=== PATIENT | female | born 1935 | race Caucasian/White ===

== ENCOUNTER 2017-07-17 15:01 | Emergency (ER) | payer MEDICARE, MEDICAID ==
--- NOTE | 2017-07-17 15:35 | RAD ---
Indication: Shortness of breath. 2 views the chest are reviewed. Cardiomegaly with tortuous descending aorta is noted. Lung pires are clear. Ribs are intact. IMPRESSION: No active cardiopulmonary disease is noted. Hyperinflated lung pires are noted.
[2017-07-17 16:13] LABS: ABS Basophils 0 10^3/ul (0-0.2); ABS Eosinophils 0.1 10^3/ul (0-0.6); ABS Lymphocytes 1.2 10^3/ul (1.0-4.8); ABS Monocytes 0.4 10^3/ul (0-0.8); ABS Neutrophils 5.8 10^3/ul (1.5-7.7); ABS Nucleated RBC 0 10^3/ul; Eosinophil % 0.9 % (0-6); Hematocrit 35 % (35-47); Hemoglobin 11.8 g/dl (12.0-16.0); Lymphocyte % 16.1 % (25-47); Mean Corpuscular HGB Conc 34 g/dl (31-36); Mean Corpuscular Hemoglobin 30 pg (27-31); Mean Corpuscular Volume 89 fL (80-97); Mean Platelet Volume 8.5 um3 (7.4-10.4); Nucleated Red Blood Cells % 0; Platelet Count 220 10^3/ul (150-450); Red Blood Count 3.96 10^6/ul (4.0-5.4); Red Cell Distribution Width 14 % (10.5-15); White Blood Count 7.6 10^3/ul (3.5-10.8)
[2017-07-17 16:36] LABS: EGFR Non-African American 52.5 (>60)
[2017-07-17 16:53] LABS: Urine Appearance Turbid; Urine Blood 1+ (Negative); Urine Color Yellow; Urine Ketones Negative (Negative); Urine Protein 2+(100 mg/dL) (Negative); Urine Specific Gravity 1.013 (1.010-1.030); Urine Urobilinogen Negative (Negative)
[2017-07-17] MEDS ORDERED: Ciprofloxacin 400MG IVPREMIX(* 400 MG/200 ML BAG IVPB ONE (16:58)
[2017-07-17 17:47] VITALS: BP 151/38
--- NOTE | 2017-07-20 07:48 | ED ---
Pedro Cohen Angela, scribed for Vikas Love MD on 07/17/17 at 1531 . Respiratory - HPI Summary HPI Summary: This pt is a 82 y/o female presenting to [facility] via EMS from [facility] for possible aspiration during lunch today. Per EMS, pt was feeding herself pudding thick consistency food today at lunch. Staff at [facility] believe pt may have aspirated while eating today. RN at [facility] reports expiratory wheezes and crackles in the lungs. Her O2 saturation is 86-89% on room air, per EMS. Pt is on a puree diet. Pt is nonverbal and confused at baseline. PMHx includes CAD, COPD, schizophrenia. HPI is limited due to level 5 caveat pt is nonverbal - History of Current Complaint Chief Complaint: EDUpperRespComplaint Stated Complaint: POSS. ASPIRATION Hx Obtained From: EMS Hx From Patient Unobtainable Due To: Other - Level 5 caveat - pt is nonverbal Onset/Duration: Sudden Onset Current Severity: None Pain Intensity: 0 Aggravating Factor(s): Other - unknown Alleviating Factor(s): Other - unknown - Allergy/Home Medications Allergies/Adverse Reactions: Allergies Allergy/AdvReac Type Severity Reaction Status Date / Time No Known Allergies Allergy Verified 02/23/16 14:29 Home Medications: Home Medications Atorvastatin* [Lipitor*] 20 mg PO BEDTIME 07/17/17 [History Confirmed 07/17/17] Bisacodyl SUPP* [Dulcolax Supp*] 10 mg CA DAILY PRN 07/17/17 [History Confirmed 07/17/17] Cholecalciferol (Vitamin D3) [Vitamin D3] 1,000 unit PO DAILY 07/17/17 [History Confirmed 07/17/17] Ranitidine TAB (NF) [Zantac TAB (NF)] 300 mg PO QPM 07/17/17 [History Confirmed 07/17/17] Sodium Phosphate ADULT ENEMA* [Fleet Enema*] 1 enema CA DAILY PRN 07/17/17 [ History Confirmed 07/17/17] guaiFENesin LIQ* [Robitussin*] 10 ml PO Q4H PRN 07/17/17 [History Confirmed 07/01] PMH/Surg Hx/FS Hx/Imm Hx Endocrine/Hematology History: Reports: Hx Anemia Cardiovascular History: Reports: Hx Coronary Artery Disease, Other Cardiovascular Problems/Disorders - Cariomyopathy Respiratory History: Reports: Hx Chronic Obstructive Pulmonary Disease (COPD) History: Reports: Hx Chronic Renal Failure Psychiatric History: Reports: Hx Schizophrenia Infectious Disease History: No Infectious Disease History: Denies: Traveled Outside the [place] in Last 30 Days - Family History Known Family History: Positive: Unknown - Unable to obtain due to AMS - Social History Alcohol Use: None Substance Use Type: Reports: None Smoking Status (MU): Unknown if Ever Smoked Review of Systems - ROS Summary Review of Systems Summary: ROS IS LIMITED DUE TO LEVEL 5 CAVEAT - Pt is nonverbal. Positive: Fever Respiratory: Other - crackles heard in lungs, per EMS Positive: Cough All Other Systems Reviewed And Are Negative: No Physical Exam - Summary Physical Exam Summary: VITAL SIGNS: Reviewed. GENERAL: Patient is a well-developed and nourished female who is lying comfortable in the stretcher. Patient is not in any acute respiratory distress. HEAD AND FACE: No signs of trauma. No ecchymosis, hematomas or skull depressions. No sinus tenderness. EYES: PERRLA, EOMI x 2, No injected conjunctiva, no nystagmus. EARS: Hearing grossly intact. Ear canals and tympanic membranes are within normal limits. MOUTH: Oropharynx within normal limits. NECK: Supple, trachea is midline, no adenopathy, no JVD, no carotid bruit, no c- spine tenderness, neck with full ROM. CHEST: Symmetric, no tenderness at palpation LUNGS: Crackles in both bases of the lungs. CVS: Regular rate and rhythm, S1 and S2 present, no murmurs or gallops appreciated. ABDOMEN: Soft, non-tender. No signs of distention. No rebound no guarding, and no masses palpated. Bowel sounds are normal. EXTREMITIES: FROM in all major joints, no edema, no cyanosis or clubbing. NEURO: Alert but not oriented. No acute neurological deficits. Speech is normal and follows commands. SKIN: Dry and warm Triage Information Reviewed: Yes Vital Signs On Initial Exam: Initial Vitals Temp Pulse Resp BP Pulse Ox 97.8 F 92 14 164/48 97 07/17/17 15:03 07/17/17 15:03 07/17/17 15:03 07/17/17 15:03 07/17/17 15:03 Vital Signs Reviewed: Yes Completion Of Physical Exam Limited Due To: Level 5 - pt is nonverbal Diagnostics - Vital Signs Vital Signs Temp Pulse Resp BP Pulse Ox 07/17/17 15:03 97.8 F 92 14 164/48 97 - Laboratory Result Diagrams: 07/17/17 16:00 07/17/17 16:00 Lab Statement: Any lab studies that have been ordered have been reviewed, and results considered in the medical decision making process. - Radiology Chest XR Xray Interpretation: No Acute Changes - IMPRESSION: No active cardiopulmonary disease is noted. Hyperinflated lung pires are noted. Dr. Love has reviewed this radiology report. Radiology Interpretation Completed By: Radiologist - EKG 15:32 Cardiac Rate: NL EKG Rhythm: Sinus Rhythm - at 86 bpm EKG Interpretation: No ST elevations. ST depression in I, II, III, V4, V5, and V6. Disposition - Course Assessment/Plan: This pt is a 82 y/o female presenting to [facility] via EMS from [facility] for possible aspiration during lunch today. Per EMS, pt was feeding herself pudding thick consistency food today at lunch. Staff at [facility] believe pt may have aspirated while eating today. Pt is on a puree diet. Pt is nonverbal and confused at baseline. PMHx includes CAD, COPD, schizophrenia. HPI is limited due to level 5 caveat pt is nonverbal. Test results without any significant abnormalities except for ABG pH of 7.47, pO2 of 60, CRP of 14.46, BNP of 185. Urinalysis is positive for UTI. Chest XR: No active cardiopulmonary disease is noted. Hyperinflated lung pires are noted. Therefore she will be discharged to home with follow up from her PCP. I discussed all the findings and test results with the patient. There were no further complaints or concerns. Pt was given a prescription for Ciprofloxacin for the UTI. She is instructed to return to the ED for any worsening or new symptoms. Pt is hemodynamically stable, alert but not oriented. - Diagnoses Provider Diagnoses: Urinary tract infection Discharge - Sign-Out/Discharge Documenting (check all that apply): Discharge - discharge to home - Discharge Plan Condition: Stable Disposition: HOME Prescriptions: Ciprofloxacin TAB* [Cipro 500 MG TAB*] 500 mg PO BID #6 tab Patient Education Materials: Urinary Tract Infection in Women (ED) Referrals: [facility] [Outside] No Primary Care Phys,NOPCP [Primary Care Provider] - Additional Instructions: Please follow up with your primary care provider. RETURN TO THE ED FOR ANY NEW OR WORSENING SYMPTOMS. The documentation as recorded by the Pedro cortez Angela accurately reflects the service I personally performed and the decisions made by , Vikas Love MD.
--- NOTE | 2017-07-20 08:49 | PN ---
Progress Note - Progress Note Date of Service: 07/17/17 Note: Urine culture final grew Klebsiella pneumonia Patient was placed on Cipro prior to discharge Cipro is sensitive to this organism Nothing further at this time
== END 2017-07-17 19:34 | disposition home or self-care (01) ==
LOC: ED 15:01
DX: N39.0 Urinary tract infection, site not specified (principal); B96.1 Klebsiella pneumoniae [K. pneumoniae] as the cause of diseases classified elsewhere; I25.10 Atherosclerotic heart disease of native coronary artery without angina pectoris; I42.9 Cardiomyopathy, unspecified; J44.9 Chronic obstructive pulmonary disease, unspecified; N18.9 Chronic kidney disease, unspecified; F20.9 Schizophrenia, unspecified
CPT/HCPCS: 36415; 71046; 80053; 81003; 81015; 82550; 82803; 83605; 83880; 84484; 85025; 86140; 87040; 87077; 87086; 87186; 87641; 93005; 99283; J0744

== ENCOUNTER 2017-09-23 11:07 | Inpatient (IN) | payer MEDICARE, MEDICAID ==
[2017-09-23] MEDS ORDERED: Piperacillin/Tazobac ADVAN(*) 3.375 GM in NS 0.9% 100 ML* 100 ML IVPB ONE (11:10)
[2017-09-23] MEDS ORDERED: NS 0.9% 1000 ML* 1,000 ML IV ONE (11:11)
[2017-09-23 11:31] LABS: ABS Basophils 0.1 10^3/ul (0-0.2); ABS Eosinophils 0.1 10^3/ul (0-0.6); ABS Lymphocytes 4.6 10^3/ul (1.0-4.8); ABS Monocytes 0.5 10^3/ul (0-0.8); ABS Nucleated RBC 0 10^3/ul; Eosinophil % 0.9 % (0-6); Hematocrit 36 % (35-47); Hemoglobin 11.5 g/dl (12.0-16.0); Lymphocyte % 28.1 % (25-47); Mean Corpuscular HGB Conc 32 g/dl (31-36); Mean Corpuscular Hemoglobin 28 pg (27-31); Mean Corpuscular Volume 89 fL (80-97); Mean Platelet Volume 8.5 um3 (7.4-10.4); Nucleated Red Blood Cells % 0; Platelet Count 329 10^3/ul (150-450); Red Blood Count 4.05 10^6/ul (4.0-5.4); Red Cell Distribution Width 16 % (10.5-15); White Blood Count 16.2 10^3/ul (3.5-10.8)
[2017-09-23 11:42] LABS: INR 1.02 (0.77-1.02)
[2017-09-23 11:49] LABS: EGFR Non-African American 50.7 (>60)
[2017-09-23 12:09] LABS: Urine Appearance Cloudy; Urine Blood 2+ (Negative); Urine Color Yellow; Urine Ketones Negative (Negative); Urine Protein 2+(100 mg/dL) (Negative); Urine Specific Gravity 1.016 (1.010-1.030); Urine Urobilinogen Negative (Negative)
--- NOTE | 2017-09-23 12:45 | RAD ---
INDICATION: Altered mental status COMPARISON: Similar CT of the brain February 23, 2016 TECHNIQUE: Contiguous axial sections of the brain were obtained from the skull base to the vertex without contrast. FINDINGS: The ventricles, cisterns and sulci exhibit symmetrical involutional changes unchanged from the prior CT of the brain.. There is a mild amount of periventricular and subcortical white matter hypoattenuation, similar in appearance to the previous CT of the brain and most consistent with chronic microvascular disease. The martínez-white matter differentiation is adequately maintained and there is no sulcal effacement. No significant focal abnormality or mass effect is present. There is no evidence for intracranial hemorrhage. No significant focal osseous abnormality is present. There is a small amount of dependent fluid and frothy secretions in the left sphenoid sinus. This is new from the previous CT of the brain. The mastoid air cells are well aerated bilaterally. IMPRESSION: 1. Stable chronic findings as described above without noncontrast CT apparent acute intracranial abnormality. 2. Evidence of new sphenoid sinusitis.
--- NOTE | 2017-09-23 12:52 | RAD ---
INDICATION: Altered mental status COMPARISON: Chest x-ray dated July 17, 2017 TECHNIQUE: Single AP portable view of the chest was obtained. FINDINGS: Image quality is compromised due to the relative inferiority of a portable chest x-ray. The heart and mediastinum exhibit normal size and contour. There is coarse calcification overlying the arch of aorta similar in appearance to the previous chest x-ray. In the AP view the lungs appear hyperaerated. There is diffuse patchy density overlying the bilateral lungs. Visualized bones are normal for the patient's age. IMPRESSION: Increased patchy density overlying the lungs diffusely could be seen in the setting of interval development of pulmonary edema possibly on a background of obstructive pulmonary disease.
[2017-09-23] MEDS ORDERED: Magnesium Hydroxide LIQ* 30 ML UDC PO PRN (13:49)
[2017-09-23] MEDS ORDERED: Bisacodyl SUPP* 10 MG SUPP PR PRN (13:49)
[2017-09-23] MEDS ORDERED: Sodium Phosphate ADULT ENEMA* 118 ml bottle PR PRN (13:49)
[2017-09-23] MEDS ORDERED: Zosyn per Pharmacy* NOTE FOLLOW UP SCH (14:00)
[2017-09-23] MEDS ORDERED: NS 0.9% 1000 ML* 1,000 ML IV SCH (14:15)
[2017-09-23] MEDS: Heparin VIAL(*) 5000 UNITS/ML VIAL (FIVE THOUSAND) SUBCUT SCH ×2 (16:15→21:40)
--- NOTE | 2017-09-23 16:26 | ED ---
Mary Cohen Julia, scribed for Vikas Love MD on 09/23/17 at 1116 . Respiratory - HPI Summary HPI Summary: This patient is a 82 year old [facility] EMS reports the patient was receiving CPR on arrival with an AED. No shocks were delivered. EMS found radial pulse. EMS states she has been dealing with a flare up of COPD this morning. Right lower lobe crackles per EMS. HPI IS LIMITED. PATIENT IS LEVEL 5 CAVEAT. - History of Current Complaint Stated Complaint: UNRESPONSIVE Time Seen by Provider: 09/23/17 11:09 Hx Obtained From: EMS Hx From Patient Unobtainable Due To: Extremis Related History: Similar Episode/Dx as - COPD - Allergy/Home Medications Allergies/Adverse Reactions: Allergies Allergy/AdvReac Type Severity Reaction Status Date / Time amlodipine [From Norvasc] Allergy Unknown Verified 09/23/17 15:23 Reaction Details carvedilol [From Coreg] Allergy Unknown Verified 09/23/17 15:23 Reaction Details codeine Allergy Unknown Verified 09/23/17 15:23 Reaction Details diltiazem Allergy Unknown Verified 09/23/17 15:23 Reaction Details nicotine [From Nicoderm CQ] Allergy Unknown Verified 09/23/17 15:23 Reaction Details Home Medications: Home Medications Dulcolax Supp* 1 tab AK DAILY PRN 09/23/17 [History Confirmed 09/23/17] Milk of Magnesia LIQ* 15 ml PO DAILY PRN 09/23/17 [History Confirmed 09/23/17] Tylenol TAB* 650 mg PO Q6HR PRN 09/23/17 [History Confirmed 09/23/17] Vitamin D TAB* 1,000 units PO DAILY 09/23/17 [History Confirmed 09/23/17] raNITIdine HCl [Ranitidine HCl] 300 mg PO BID 09/23/17 [History Confirmed ] PMH/Surg Hx/FS Hx/Imm Hx Endocrine/Hematology History: Reports: Hx Anemia Cardiovascular History: Reports: Hx Coronary Artery Disease, Other Cardiovascular Problems/Disorders - Cariomyopathy Respiratory History: Reports: Hx Chronic Obstructive Pulmonary Disease (COPD) History: Reports: Hx Chronic Renal Failure Psychiatric History: Reports: Hx Schizophrenia - Family History Known Family History: Positive: Unknown - Unable to obtain due to AMS - Social History Smoking Status (MU): Unknown if Ever Smoked Review of Systems All Other Systems Reviewed And Are Negative: No - Comments Additional Review of Systems Comments: ROS IS UNATTAINABLE. PATIENT IS LEVEL 5 CAVEAT. Physical Exam - Summary Physical Exam Summary: VITAL SIGNS: Reviewed. GENERAL: Patient is an ill appearing fragile female who is minimally responsive. HEAD AND FACE: No signs of trauma. No bleeding. No ecchymosis, hematomas or skull depressions. EYES: PERRLA, No injected conjunctiva, no nystagmus. MOUTH: Oropharynx is midline within normal limits. NECK: Supple, trachea is midline, no adenopathy, IJ placed on R by EMT CHEST: Symmetric, no tenderness at palpation LUNGS: Crackles in R lower lobe CVS: Regular rate and rhythm, S1 and S2 present, no murmurs or gallops appreciated. ABDOMEN: Soft, decreased bowel sounds EXTREMITIES:, no edema, no cyanosis or clubbing. NEURO: Alert but not oriented. Lethargic. SKIN: Dry and warm Triage Information Reviewed: Yes Vital Signs On Initial Exam: Initial Vitals Pulse Resp Pulse Ox 106 30 94 09/23/17 11:17 09/23/17 11:17 09/23/17 11:17 Vital Signs Reviewed: Yes Diagnostics - Vital Signs Vital Signs Temp Pulse Resp BP Pulse Ox 09/23/17 13:14 61 29 120/41 91 09/23/17 13:01 61 24 95 09/23/17 12:59 63 24 134/46 95 09/23/17 12:44 64 26 117/43 97 09/23/17 12:29 66 19 122/40 96 09/23/17 12:14 73 24 137/47 97 09/23/17 12:10 97 09/23/17 12:01 82 39 95 09/23/17 11:59 78 47 169/67 95 09/23/17 11:44 85 167/53 99 09/23/17 11:40 88 20 169/49 98 09/23/17 11:24 97.1 F 98 22 168/59 92 09/23/17 11:17 106 30 94 - Laboratory Lab Results: Lab Results 09/23/17 09/23/17 09/23/17 Range/Units 11:22 11:24 11:24 WBC 16.2 H (3.5-10.8) 10^3/ul RBC 4.05 (4.0-5.4) 10^6/ul Hgb 11.5 L (12.0-16.0) g/dl Hct 36 (35-47) % MCV 89 (80-97) fL MCH 28 (27-31) pg MCHC 32 (31-36) g/dl RDW 16 H (10.5-15) % Plt Count 329 (150-450) 10^3/ul MPV 8.5 (7.4-10.4) um3 Neut % (Auto) 67.7 (38-83) % Lymph % (Auto) 28.1 (25-47) % [place] % (Auto) 2.8 (0-7) % Eos % (Auto) 0.9 (0-6) % Baso % (Auto) 0.5 (0-2) % Absolute Neuts (auto) 11.0 H (1.5-7.7) 10^3/ul Absolute Lymphs (auto) 4.6 (1.0-4.8) 10^3/ul Absolute Monos (auto) 0.5 (0-0.8) 10^3/ul Absolute Eos (auto) 0.1 (0-0.6) 10^3/ul Absolute Basos (auto) 0.1 (0-0.2) 10^3/ul Absolute Nucleated RBC 0 10^3/ul Nucleated RBC % 0 ESR 54 H (0-40) mm/Hr INR (Anticoag Therapy) 1.02 (0.77-1.02) APTT 37.2 H (26.0-36.3) seconds Fibrinogen 445.4 H (110.8-404.3) mg/dL ABG pH (7.35-7.45) ABG pCO2 (35-45) mmHg ABG pO2 (80-100) mmHg ABG HCO3 (19-31) mmol/L ABG O2 Saturation (95-98) % ABG Base Excess (-2.0-2.0) Sodium (139-145) mmol/L Potassium (3.5-5.0) mmol/L Chloride (101-111) mmol/L Carbon Dioxide (22-32) mmol/L Anion Gap (2-11) mmol/L BUN (6-24) mg/dL Creatinine (0.51-0.95) mg/dL Est GFR ( Amer) (>60) Est GFR (Non-Af Amer) (>60) BUN/Creatinine Ratio (8-20) Glucose (70-100) mg/dL Lactic Acid (0.5-2.0) mmol/L Calcium (8.6-10.3) mg/dL Total Bilirubin (0.2-1.0) mg/dL AST (13-39) U/L ALT (7-52) U/L Alkaline Phosphatase (34-104) U/L Total Creatine Kinase (10-223) U/L Troponin I (<0.04) ng/mL C-Reactive Protein (< 5.00) mg/L B-Natriuretic Peptide ( - 100) pg/mL Total Protein (6.4-8.9) g/dL Albumin (3.2-5.2) g/dL Globulin (2-4) g/dL Albumin/Globulin Ratio (1-3) Procalcitonin < 0.1 (<0.6) ng/mL Urine Color Urine Appearance Urine pH (5-9) Ur Specific Halfway (1.010-1.030) Urine Protein (Negative) Urine Ketones (Negative) Urine Blood (Negative) Urine Nitrate (Negative) Urine Bilirubin (Negative) Urine Urobilinogen (Negative) Ur Leukocyte Esterase (Negative) Urine WBC (Auto) (Absent) Urine RBC (Auto) (Absent) Ur Squamous Epith Cells (Absent) Urine Bacteria (Absent) Hyaline Casts (Absent) Urine Glucose (Negative) Urine Ascorbic Acid (Negative) 09/23/17 09/23/17 09/23/17 Range/Units 11:24 11:24 11:24 WBC (3.5-10.8) 10^3/ul RBC (4.0-5.4) 10^6/ul Hgb (12.0-16.0) g/dl Hct (35-47) % MCV (80-97) fL MCH (27-31) pg MCHC (31-36) g/dl RDW (10.5-15) % Plt Count (150-450) 10^3/ul MPV (7.4-10.4) um3 Neut % (Auto) (38-83) % Lymph % (Auto) (25-47) % [place] % (Auto) (0-7) % Eos % (Auto) (0-6) % Baso % (Auto) (0-2) % Absolute Neuts (auto) (1.5-7.7) 10^3/ul Absolute Lymphs (auto) (1.0-4.8) 10^3/ul Absolute Monos (auto) (0-0.8) 10^3/ul Absolute Eos (auto) (0-0.6) 10^3/ul Absolute Basos (auto) (0-0.2) 10^3/ul Absolute Nucleated RBC 10^3/ul Nucleated RBC % ESR (0-40) mm/Hr INR (Anticoag Therapy) (0.77-1.02) APTT (26.0-36.3) seconds Fibrinogen (110.8-404.3) mg/dL ABG pH (7.35-7.45) ABG pCO2 (35-45) mmHg ABG pO2 (80-100) mmHg ABG HCO3 (19-31) mmol/L ABG O2 Saturation (95-98) % ABG Base Excess (-2.0-2.0) Sodium 138 L (139-145) mmol/L Potassium 3.5 (3.5-5.0) mmol/L Chloride 101 (101-111) mmol/L Carbon Dioxide 21 L (22-32) mmol/L Anion Gap 16 H (2-11) mmol/L BUN 24 (6-24) mg/dL Creatinine 1.04 H (0.51-0.95) mg/dL Est GFR ( Amer) 65.2 (>60) Est GFR (Non-Af Amer) 50.7 (>60) BUN/Creatinine Ratio 23.1 H (8-20) Glucose 322 H (70-100) mg/dL Lactic Acid 5.9 H* (0.5-2.0) mmol/L Calcium 9.5 (8.6-10.3) mg/dL Total Bilirubin 0.40 (0.2-1.0) mg/dL AST 21 (13-39) U/L ALT 15 (7-52) U/L Alkaline Phosphatase 82 (34-104) U/L Total Creatine Kinase 46 (10-223) U/L Troponin I 0.03 (<0.04) ng/mL C-Reactive Protein 8.42 H (< 5.00) mg/L B-Natriuretic Peptide 321 H ( - 100) pg/mL Total Protein 6.9 (6.4-8.9) g/dL Albumin 3.5 (3.2-5.2) g/dL Globulin 3.4 (2-4) g/dL Albumin/Globulin Ratio 1.0 (1-3) Procalcitonin (<0.6) ng/mL Urine Color Urine Appearance Urine pH (5-9) Ur Specific Halfway (1.010-1.030) Urine Protein (Negative) Urine Ketones (Negative) Urine Blood (Negative) Urine Nitrate (Negative) Urine Bilirubin (Negative) Urine Urobilinogen (Negative) Ur Leukocyte Esterase (Negative) Urine WBC (Auto) (Absent) Urine RBC (Auto) (Absent) Ur Squamous Epith Cells (Absent) Urine Bacteria (Absent) Hyaline Casts (Absent) Urine Glucose (Negative) Urine Ascorbic Acid (Negative) 09/23/17 09/23/17 Range/Units 11:50 11:54 WBC (3.5-10.8) 10^3/ul RBC (4.0-5.4) 10^6/ul Hgb (12.0-16.0) g/dl Hct (35-47) % MCV (80-97) fL MCH (27-31) pg MCHC (31-36) g/dl RDW (10.5-15) % Plt Count (150-450) 10^3/ul MPV (7.4-10.4) um3 Neut % (Auto) (38-83) % Lymph % (Auto) (25-47) % [place] % (Auto) (0-7) % Eos % (Auto) (0-6) % Baso % (Auto) (0-2) % Absolute Neuts (auto) (1.5-7.7) 10^3/ul Absolute Lymphs (auto) (1.0-4.8) 10^3/ul Absolute Monos (auto) (0-0.8) 10^3/ul Absolute Eos (auto) (0-0.6) 10^3/ul Absolute Basos (auto) (0-0.2) 10^3/ul Absolute Nucleated RBC 10^3/ul Nucleated RBC % ESR (0-40) mm/Hr INR (Anticoag Therapy) (0.77-1.02) APTT (26.0-36.3) seconds Fibrinogen (110.8-404.3) mg/dL ABG pH 7.24 L (7.35-7.45) ABG pCO2 53 H (35-45) mmHg ABG pO2 94 (80-100) mmHg ABG HCO3 21.1 (19-31) mmol/L ABG O2 Saturation 98.8 H (95-98) % ABG Base Excess -4.9 L (-2.0-2.0) Sodium (139-145) mmol/L Potassium (3.5-5.0) mmol/L Chloride (101-111) mmol/L Carbon Dioxide (22-32) mmol/L Anion Gap (2-11) mmol/L BUN (6-24) mg/dL Creatinine (0.51-0.95) mg/dL Est GFR ( Amer) (>60) Est GFR (Non-Af Amer) (>60) BUN/Creatinine Ratio (8-20) Glucose (70-100) mg/dL Lactic Acid (0.5-2.0) mmol/L Calcium (8.6-10.3) mg/dL Total Bilirubin (0.2-1.0) mg/dL AST (13-39) U/L ALT (7-52) U/L Alkaline Phosphatase (34-104) U/L Total Creatine Kinase (10-223) U/L Troponin I (<0.04) ng/mL C-Reactive Protein (< 5.00) mg/L B-Natriuretic Peptide ( - 100) pg/mL Total Protein (6.4-8.9) g/dL Albumin (3.2-5.2) g/dL Globulin (2-4) g/dL Albumin/Globulin Ratio (1-3) Procalcitonin (<0.6) ng/mL Urine Color Yellow Urine Appearance Cloudy Urine pH 5.0 (5-9) Ur Specific Halfway 1.016 (1.010-1.030) Urine Protein 2+(100 mg/dl) A (Negative) Urine Ketones Negative (Negative) Urine Blood 2+ A (Negative) Urine Nitrate Negative (Negative) Urine Bilirubin Negative (Negative) Urine Urobilinogen Negative (Negative) Ur Leukocyte Esterase Negative (Negative) Urine WBC (Auto) 2+(11-20/hpf) A (Absent) Urine RBC (Auto) 3+(>10/hpf) A (Absent) Ur Squamous Epith Cells Present A (Absent) Urine Bacteria Absent (Absent) Hyaline Casts Present A (Absent) Urine Glucose 2+(150 mg/dl) A (Negative) Urine Ascorbic Acid * A (Negative) Result Diagrams: 09/23/17 11:24 09/23/17 11:24 Lab Statement: Any lab studies that have been ordered have been reviewed, and results considered in the medical decision making process. - Radiology CXR Radiology Interpretation Completed By: Radiologist - Increased patchy density overlying the lungs diffusely could be seen in the setting of interval development of pulmonary edema possibly on a background of obstructive pulmonary disease. ED physician has reviewed this report. - CT Brain CT CT Interpretation Completed By: Radiologist - 1. Stable chronic findings as described above without noncontrast CT apparent acute intracranial abnormality. 2. Evidence of new sphenoid sinusitis. ED Physician has reviewed this report. - EKG 1151 Cardiac Rate: NL EKG Rhythm: Sinus Rhythm - 85 BPM EKG Interpretation: no ST elevations, inverted T waves in I,II, avf, v3, and v6 EKG Comparison: Other - Changed from 07/17/17 Disposition - Course Assessment/Plan: Initially the patient was placed on a ice handler, IV access was obtained, and the patient was started and an IV fluids. The patient is wheezing therefore the patient was given Duonebs and Solu-Medrol. Blood test results without any significant abnormality except provisional 5% 2, chronic renal failure, glucose of 144. Lactic acid is 2.9 and troponin 0.08. ABG: PH is 7.24, PCO2 is 53, PO2 is 94, O2 sat is 98.8. EKG: Normal sinus rhythm at 90 bpm, without any ST elevations, positive left bundle-branch. Chest x-ray impression: No acute Pulmonary disease. In the ED course patient also was given additional Duonebs and and I gave Rocephin since the patient is a COPD exacerbation. I discuss my physical exam, findings and test results with Dr. Mcmillan from the hospitalist services and he agrees to admit patient to his services. Patient is hemodynamically stable alert and oriented x 3. - Diagnoses Provider Diagnoses: COPD exacerbation, Bronchitis - Physician Notifications Discussed Care Of Patient With: Renae Mcmillan - hospitalist Time Discussed With Above Provider: 12:53 Instructed by Provider To: Admit As Inpatient Discharge - Sign-Out/Discharge Documenting (check all that apply): Discharge/Admit/Transfer - Discharge Plan Condition: Stable Disposition: ADMITTED TO [facility] - Billing Disposition and Condition Condition: STABLE Disposition: Admitted to [facility] The documentation as recorded by the Mary cortez Julia accurately reflects the service I personally performed and the decisions made by Ivan glover Walter, MD.
--- NOTE | 2017-09-23 16:32 | HP ---
CC: [facility] * HISTORY AND PHYSICAL: DATE OF ADMISSION: 09/23/17 PRIMARY CARE PROVIDER: [facility]. ATTENDING PHYSICIAN: Renae Mcmillan DO * (dictated by Lisa Ngo NP) CHIEF COMPLAINT: Unresponsive episode, hypoxia and possible loss of pulse. HISTORY OF PRESENT ILLNESS: Ms. Meade is an 82-year-old female with past medical history significant for anemia, COPD, chronic kidney disease, cardiomyopathy and schizophrenia who resides at [facility]. According to nursing note, she was found unresponsive this morning and hypoxic with an oxygen saturation in the 80s and they applied oxygen. The patient prior to that had been complaining of being unable to cough up phlegm. There are reports that the patient possibly lost her pulse and she received CPR and EMS was called. When EMS arrived, they noted she had oxygen on 8 L and was in sinus tachycardia. The patient denies any fevers, chills, shortness of breath, nausea, vomiting. She reports waking up from this event with chest discomfort. She reports a cough and being unable to clear her mucus. She denies any urinary symptoms. While in the emergency room she had labs showing a leukocytosis of 16.2, urinalysis with blood, wbc's, squamous epithelial cells and rbc's. She had a chest x-ray showing an increased patchy density overlying the lungs diffusely. She had a head CT showing possible sphenoid sinusitis but chronic findings. She has an EKG with new diffuse T-wave inversion, ESR 54, lactic acid 5.9, troponin 0.03, procalcitonin less than 0.1. She had a CRP of 8.42. The hospitalists were asked to evaluate the patient for admission. PAST MEDICAL HISTORY: 1. Anemia. 2. COPD. 3. Chronic kidney disease. 4. Cardiomyopathy. 5. Schizophrenia. PAST SURGICAL HISTORY: None. HOME MEDICATIONS: Include: 1. Fleet enema 1 p.r. daily as needed for constipation. 2. Milk of magnesia 30 mL oral daily as needed for constipation. 3. Dulcolax suppository 10 mg p.r. daily as needed for constipation. 4. Zantac 300 mg oral every evening. 5. Tylenol 650 mg oral every 6 hours as needed for fever or pain. 6. Vitamin D3 of 1000 units oral daily. ALLERGIES: No known drug allergies. FAMILY HISTORY: The patient denies any family history of coronary artery disease or cancer. She nods her head yes to history of diabetes but is unable to tell me in which relatives. SOCIAL HISTORY: The patient nods her head to being a former smoker, but is unable to elaborate. She denies alcohol or recreational drug use. Her son, Abad Meade, will be her surrogate decision maker in the event she is unable to make decisions for herself. REVIEW OF SYSTEMS: I performed an 11-point review of systems. All the pertinent positives and negatives are mentioned in the history of present illness. The remaining review of systems are negative. PHYSICAL EXAMINATION GENERAL APPEARANCE: The patient is a frail elderly appearing female who appears to be in no acute distress. VITAL SIGNS: Temperature 97.1, heart rate 82, respiratory rate 39, O2 sat 97% on 3 L via nasal cannula, blood pressure 169/67. HEENT: Normocephalic, atraumatic. Pupils are equal and reactive to light. Extraocular movements are intact. She has poor dentition. RESPIRATORY: There is no accessory muscle use. She has crackles in her right lower lung. CARDIOVASCULAR: Regular rate and rhythm. S1 and S2 present. There are no murmurs, rubs, or gallops heard. ABDOMEN: Soft, nontender, and nondistended. There are hypoactive bowel sounds present. EXTREMITIES: There is no lower extremity edema. DP and PT pulses are 1+ and symmetric. MUSCULOSKELETAL: There is no clubbing or cyanosis noted. The patient exhibits good strength in all extremities. NEUROLOGICAL: The patient is alert, appears to be oriented to self. She is not talking and only nodding her head, so I am unable to determine further orientation. PSYCHOLOGICAL: The patient is calm and cooperative. SKIN: There are no rashes or abnormalities seen. DIAGNOSTIC STUDIES/LAB DATA: Sodium 138, potassium 3.5, chloride 101, CO2 of 21, BUN 24, creatinine 1.04, glucose 322. White blood cell count 16.2, hemoglobin 11.5, hematocrit 36, and platelet count 329,000. ESR 54, lactic acid 5.9, troponin 0.3, procalcitonin less than 0.1. CRP 8.42. BNP 321. Urinalysis significant for urine protein 2+, urine blood 2+, wbc's 2+, rbc's 3+ , squamous epithelial cells present, hyaline casts present, urine glucose 2+, urine ascorbic acid. ABG; pH 7.24, pCO2 of 53, pO2 of 94, HCO3 of 21.1, O2 saturation 98.8, base excess negative 4.9. EKG shows a sinus rhythm with a rate of 85, and diffuse T-wave inversion in leads I, II, III, aVL, aVF and leads V3 to V6. This all appears to be new when compared to previous EKG from 07/17/17. Chest x-ray from today. Radiologist's impression: Increased patchy density overlying the lungs diffusely. Head CT from today. Radiologist's impression: Stable chronic findings as described above without noncontrast CT, apparent acute intracranial abnormality. Evidence of new sphenoid sinusitis. IMPRESSION: Ms. Meade is an 82-year-old female with past medical history significant for schizophrenia, anemia, chronic obstructive pulmonary disease, chronic kidney disease, cardiomyopathy who presented to the emergency room from her nursing facility after an unresponsive episode and possible loss of pulse. She will be admitted as an inpatient for pneumonia, acute kidney injury and lactic acidosis. ASSESSMENT/PLAN: 1. Pneumonia. I suspect this could represent aspiration as the patient is on pureed and pudding thick liquids and is reporting a lot of mucous. She received IV Zosyn in the ER. In the setting of possible aspiration pneumonia, I am going to continue her on IV Zosyn. For now, we will get a urine Legionella and S pneumoniae antigen and a sputum culture if possible. The patient's CRP is 8.42, ESR is 54 and her procalcitonin is less than 0.1. She will also need to have a swallow evaluation to make sure she is not aspirating. 2. Acute on chronic kidney disease stage 3. I suspect this is secondary to dehydration. The patient has received IV fluids in the ER. We will continue gentle IV hydration overnight and recheck her labs in the morning. 3. Lactic acidosis. I suspect this is likely secondary to a combination of her infection and hypoperfusion. The patient has received 1 L of fluid. I am going to only give her 1 L and then give gentle hydration in the setting of her history of cardiomyopathy and unknown last EF. We will recheck her lactic acidosis around 3 pm today. 4. Abnormal EKG. The patient has new diffuse T-wave inversions. This is new when compared to previous EKG from 07/17/17. We will trend her troponin and monitor her on telemetry, she is currently complaining of chest pain, but did receive chest compression. I suspect this is likely causing her chest pain. 5. Anemia. The patient appears to be at her baseline hemoglobin and hematocrit. 6. Chronic obstructive pulmonary disease. I do not feel the patient is in an acute chronic obstructive pulmonary disease exacerbation as she does not have any wheezing at this time. She is not complaining of shortness of breath. She is not currently on any home inhaled medications. 7. Schizophrenia. Continue supportive care. 8. Cardiomyopathy. We will get daily weights, strict I's and O's and give cautious IV fluids. 9. Fluids, electrolytes and nutrition. She will be on a regular pureed diet with pudding thick fluids. 10. Code status. Full code. 11. DVT prophylaxis. She is at highest risk as well as subcu heparin. I will hold on SCDs in the setting of history of cardiomyopathy. 12. Disposition. Inpatient. TIME SPENT: Time for this admission was approximately 60 minutes, greater than half of that was spent with the patient discussing medications, past medical history and the events leading up to her arrival today, performing a physical examination. The case has been reviewed with the attending, Dr. Mcmillan, who agrees with the plan of care. Reviewed by YOU FERNANDEZ 09/27/17 0931 [id number]/[facility] #: [id number] CHARLENE
[2017-09-23] MEDS: ZOSYN 3.375 GM Q8H per EXTENDED INFUSION IVPB SCH ×4 (17:06→23:48)
[2017-09-23] MEDS: Famotidine TAB* 20 MG PO SCH (17:07)
[2017-09-23] MEDS: Acetaminophen TAB* 325 MG PO PRN (20:20)
[2017-09-23] MEDS: Aspirin EC TAB* 81 MG TAB.EC PO SCH (20:20)
[2017-09-23] MEDS ORDERED: Heparin DRIP 25,000 UNITS(*) 25,000 UNITS/500 ML BAG IV SCH (22:45)
[2017-09-23] MEDS ORDERED: Enoxaparin(*) 60 MG/0.6 ML SYR SUBCUT SCH (23:00)
[2017-09-24] MEDS ORDERED: Heparin VIAL(*) 5000 UNITS/ML VIAL (FIVE THOUSAND) IV PRN (00:01)
[2017-09-24 06:58] LABS: ABS Basophils 0 10^3/ul (0-0.2); ABS Eosinophils 0 10^3/ul (0-0.6); ABS Lymphocytes 1.5 10^3/ul (1.0-4.8); ABS Monocytes 0.4 10^3/ul (0-0.8); ABS Neutrophils 10.8 10^3/ul (1.5-7.7); ABS Nucleated RBC 0 10^3/ul; Eosinophil % 0.2 % (0-6); Hematocrit 30 % (35-47); Hemoglobin 10.1 g/dl (12.0-16.0); Lymphocyte % 11.7 % (25-47); Mean Corpuscular HGB Conc 34 g/dl (31-36); Mean Corpuscular Hemoglobin 29 pg (27-31); Mean Corpuscular Volume 87 fL (80-97); Mean Platelet Volume 8.8 um3 (7.4-10.4); Nucleated Red Blood Cells % 0; Platelet Count 196 10^3/ul (150-450); Red Blood Count 3.44 10^6/ul (4.0-5.4); Red Cell Distribution Width 16 % (10.5-15); White Blood Count 12.8 10^3/ul (3.5-10.8)
[2017-09-24 07:08] LABS: EGFR Non-African American 58.4 (>60)
[2017-09-24] MEDS: ZOSYN 3.375 GM Q8H per EXTENDED INFUSION IVPB SCH ×2 (07:37)
[2017-09-24] MEDS: Acetaminophen TAB* 325 MG PO PRN ×2 (07:37→20:28)
[2017-09-24] MEDS: Aspirin EC TAB* 81 MG TAB.EC PO SCH (07:37)
[2017-09-24] MEDS: Cholecalciferol TAB* 1000 UNITS PO SCH (07:37)
[2017-09-24] MEDS ORDERED: cefTRIAXone(*) 1 GM in NS 0.9% 50 ML* 50 ML IVPB SCH (11:00)
--- NOTE | 2017-09-24 11:18 | ECHO ---
Patient: KESHIA BALDWIN [facility] Rec#: [id number] : 1935 Date: 09/24/2017 Age: 82y Height: 175.26 cm / 69.0 in Weight: 55.34 kg / 122.0 lbs Sex: F BSA: 1.67 Room#: 438 Admit Date#: 09/23/2017 Type: Inpatient Referring: Cherelle Sauer Reading: Luiz Hagen MD Dairy Science Teacher: [facility] Tr[facility] Ech[facility] Indication: Chest pain BP: 113/34 HR: 73 Rhythm: NSR with PVCs Findings History: Anemia, COPD, CKD, cardiomyopathy, mental health history. Technical Comments: The study quality is fair. Completed at 1030. Left Ventricle: The left ventricular chamber size is normal. Mild concentric left ventricular hypertrophy is observed. Global left ventricular wall motion and contractility are within normal limits. Left ventricular systolic function is at the lower limits of normal. The estimated ejection fraction is 50-55%. Abnormal left ventricular diastolic function is observed. Abnormal left ventricular diastolic filling is observed, consistent with impaired relaxation. Left Atrium: The left atrium is moderately dilated. Right Ventricle: Moderator Band present. The right ventricular cavity size is normal. The right ventricular global systolic function is normal. Right Atrium: The right atrium is mildly dilated. Aortic Valve: The aortic valve is trileaflet. The aortic valve leaflets are mildly thickened. There is moderate aortic regurgitation.The degree of AR could be under estimated There is no evidence of aortic stenosis. Mitral Valve: The mitral valve leaflets are mildly thickened. There is a trace of mitral regurgitation. There is no evidence of mitral stenosis. Tricuspid Valve: The tricuspid valve leaflets are normal. There is mild tricuspid regurgitation. The right ventricular systolic pressure is estimated at 31 mmHg. No pulmonary hypertension is noted. There is no tricuspid stenosis. Pulmonic Valve: The pulmonic valve appears normal. There is trace to mild pulmonic regurgitation. There is no pulmonic stenosis. Pericardium: There is no significant pericardial effusion. Aorta: There is no dilatation of the ascending aorta. The aortic arch is not well visualized. The aortic root is normal in size. Pulmonary Artery: The main pulmonary artery is not well visualized. Venous: The inferior vena cava is dilated. There is a greater than 50% respiratory change in the inferior vena cava dimension. Conclusions Global left ventricular wall motion and contractility are within normal limits. Left ventricular systolic function is at the lower limits of normal. The estimated ejection fraction is 50-55%. Abnormal left ventricular diastolic filling is observed, consistent with impaired relaxation. The right ventricular global systolic function is normal. There is moderate aortic regurgitation.The degree of AR could be under estimated There is a trace of mitral regurgitation. There is mild tricuspid regurgitation. The right ventricular systolic pressure is estimated at 31 mmHg. There is no significant pericardial effusion. Measurements Name Value Normal Range RVIDd (AP) 2D 2.4 cm (0.9 - 2.6) RVDdMajor (2D) 4.2 cm (2.2 - 4.4) RAd ISD 4CH 5.2 cm (3.4 - 4.9) RA (A4C)W 3.6 cm (2.9 - 4.6) IVSd (2D) 1.1 cm (0.6 - 1) LVPWd (2D) 1.1 cm (0.6 - 1) LVIDd (2D) 4.3 cm (3.6 - 5.4) LVIDs (2D) 3 cm - LV FS (2D) 29 % (25 - 45) Aortic Annulus 1.9 cm (1.4 - 2.6) Ao root diameter (2D) 3.2 cm (2.1 - 3.5) Ascending Ao 2.7 cm (2.1 - 3.4) LA dimension (AP) 2D 3.2 cm (2.3 - 3.8) LAd ISD 4CH 4.6 cm (2.9 - 5.3) LA ISD 4CH W 5 cm (2.5 - 4.5) Name Value Normal Range LA ESV SP 4CH (A/L) 77 ml - LA ESV SP 2CH (A/L) 59 ml - LA ESV BP (A/L) 75 ml - LA ESV BP (A/L) index 45 ml/m2 - LA ESV SP 4CH (MOD) 75 ml - LA ESV SP 2CH (MOD) 53 ml - Name Value Normal Range MV E-wave Vmax 0.72 m/sec - MV deceleration time 262.8 msec - MV A-wave Vmax 0.91 m/sec - MV E:A ratio 0.78 ratio - LV septal e' Vmax 0.05 m/sec - LV lateral e' Vmax 0.06 m/sec - LV E:e' septal ratio 14.4 ratio - LV E:e' lateral ratio 12 ratio - Name Value Normal Range AV Vmax 1.4 m/sec - AV VTI 23.9 cm - AV peak gradient 7.4 mmHg - AV mean gradient 3.42 mmHg - LVOT Vmax 1.22 m/sec - LVOT VTI 21.7 cm - LVOT peak gradient 6.01 mmHg - LVOT mean gradient 2.65 mmHg - AR PHT 304.12 msec - AR peak gradient 22.4 mmHg - Name Value Normal Range TR Vmax 2.4 m/sec - TR peak gradient 23 mmHg - RAP 8 mmHg - RVSP 31 mmHg - IVC diameter 2.3 cm - Name Value Normal Range PV Vmax 0.76 m/sec - PV peak gradient 2.35 mmHg -
[2017-09-24] MEDS: Famotidine TAB* 20 MG PO SCH ×2 (17:07→17:11)
[2017-09-24] MEDS: NS 0.9% 1000 ML* 1,000 ML IV SCH ×2 (17:07→20:43)
--- NOTE | 2017-09-24 17:39 | PN ---
Subjective Date of Service: 09/24/17 Interval History: Patient complains of continued chest pain and shortness of breath. Chest pain is reproducible with palpation but not pleuritic. Patient denies F/C, N/V, abdominal pain, diarrhea, dysuria, or other pain. Patient is A/Ox2, unable to state date, time or year. Family History: Unchanged from Admission Social History: Unchanged from Admission Past Medical History: Unchanged from Admission Objective Active Medications: Acetaminophen (Tylenol Tab*) 650 mg PO Q6H PRN PRN Reason: PAIN Last Admin: 09/24/17 07:37 Dose: 650 mg Aspirin (Aspirin Ec Tab*) 81 mg PO DAILY CARRI Last Admin: 09/24/17 07:37 Dose: 81 mg Bisacodyl (Dulcolax Supp*) 10 mg PA DAILY PRN PRN Reason: CONSTIPATION Cholecalciferol (Vitamin D Tab*) 1,000 units PO DAILY [facility] Last Admin: 09/24/17 07:37 Dose: 1,000 units Famotidine (Pepcid Tab*) 40 mg PO QPM CARRI PRN Reason: Protocol Last Admin: 09/24/17 17:11 Dose: Not Given Guaifenesin (Mucinex*) 1,200 mg PO BID [facility] Heparin Sodium (Porcine) (Heparin Vial(*)) 5,000 units SUBCUT Q8HR [facility] Ceftriaxone Sodium 1 gm/ (Sodium Chloride) 50 mls @ 200 mls/hr IVPB Q24H [facility] Last Admin: 09/24/17 10:58 Dose: 200 mls/hr Sodium Chloride (Ns 0.9% 1000 Ml*) 1,000 mls @ 50 mls/hr IV PER RATE [facility] Last Admin: 09/24/17 17:07 Dose: 50 mls/hr Magnesium Hydroxide (Milk Of Magnesia Liq*) 30 ml PO DAILY PRN PRN Reason: CONSTIPATION Pharmacy Consult (Zosyn Per Pharmacy*) 1 note FOLLOW UP .ZOSYN PER PHARMACY [facility] Sodium Biphosphate/Sodium Phosphate (Fleet Enema*) 1 bottle PA DAILY PRN PRN Reason: CONSTIPATION Vital Signs - 8 hr 09/24/17 09/24/17 09/24/17 11:02 11:03 11:25 Temperature 98.3 F Pulse Rate 72 73 Respiratory 30 24 Rate Blood Pressure 126/38 121/39 (mmHg) O2 Sat by Pulse 97 97 Oximetry 09/24/17 15:44 Temperature 98.3 F Pulse Rate 84 Respiratory 24 Rate Blood Pressure 147/51 (mmHg) O2 Sat by Pulse 97 Oximetry Oxygen Devices in Use Now: Nasal Cannula Appearance: Patient is an 82yo female who appears stated age and is sitting in the bed in NAD. Eyes: No Scleral Icterus, PERRLA Ears/Nose/Mouth/Throat: NL Teeth, Lips, Gums, Clear Oropharnyx, Mucous Membranes Moist Neck: NL Appearance and Movements; NL JVP, Trachea Midline Respiratory: Symmetrical Chest Expansion and Respiratory Effort, - - Course Rhonchi Throughout. Cardiovascular: NL Sounds; No Murmurs; No JVD, RRR, No Edema Abdominal: NL Sounds; No Tenderness; No Distention, No Hepatosplenomegaly Lymphatic: No Cervical Adenopathy Extremities: No Edema, No Clubbing, Cyanosis Skin: No Rash or Ulcers, No Nodules or Sclerosis Neurological: NL Sensation, NL Muscle Strength and Tone, - - CN II-XII intact. A /Ox2. Result Diagrams: 09/24/17 06:42 09/24/17 06:15 Additional Lab and Data: Lab Results Microbiology and Other Data: Microbiology 09/23/17 15:40 Legionella Urinary Antigen - Final Urine Negative Legionella Antigen Streptococcus pneumoniae Ag Screen - Final Positive S. Pneumo Antigen Assess/Plan/Problems-Billing Assessment: Patient is an 82yo female with dementia, schizophrenia, COPD, CKD, Cardiomyopathy, anemia who presents after being unresponsive with a possible pulseless episode found to have pneumonia due to strep pneumonia and EKG changes with T wave inversions in the anterior leads. - Patient Problems (1) Pneumonia Current Visit: No Status: Acute Code(s): J18.9 - PNEUMONIA, UNSPECIFIED ORGANISM SNOMED Code(s): 605987184 Comment: Blood cultures negative. Chest xray shows infiltrate. Urine positive for S. pneumo antigen. Patient on 4L O2. Switch Zosyn to Ceftriaxone to cover strep pneumo. (2) Altered mental status Current Visit: No Status: Acute Code(s): R41.82 - ALTERED MENTAL STATUS, UNSPECIFIED SNOMED Code(s): 084085807 Comment: Improving, suspect this is related to infection. Continue supportive care. CT head negative, continue neuro checks. No focal deficits. (3) Elevated troponin Current Visit: No Status: Acute Code(s): R79.89 - OTHER SPECIFIED ABNORMAL FINDINGS OF BLOOD CHEMISTRY SNOMED Code(s): 330592877 Comment: Chest pain reproducible with palpation with elevated troponin peaked at .23. Possibly demand ischemia or trauma from Chest Compressions. Appreciate cardiology input. not good candidate for Cardiac Cath right now. Will discuss stress test at later date with family. Discontinue heparin drip, continue aspirin. Will check lipids and hemoglobin A1c. (4) Schizophrenia Current Visit: No Status: Acute Code(s): F20.9 - SCHIZOPHRENIA, UNSPECIFIED SNOMED Code(s): 81781060 Comment: Continue supportive care. Negative symptoms could be contributing to AMS. (5) Anemia Current Visit: No Status: Chronic Code(s): D64.9 - ANEMIA, UNSPECIFIED SNOMED Code(s): 958044546 Comment: At baseline. (6) Cardiomyopathy Current Visit: No Status: Chronic Code(s): I42.9 - CARDIOMYOPATHY, UNSPECIFIED SNOMED Code(s): 14534382 Comment: Normal EF on Echo with no focal wall motion abnormalities. (7) Chronic kidney disease Current Visit: No Status: Chronic Code(s): N18.9 - CHRONIC KIDNEY DISEASE, UNSPECIFIED SNOMED Code(s): 436260349 Comment: At baseline. (8) Full code status Current Visit: No Status: Acute Code(s): Z78.9 - OTHER SPECIFIED HEALTH STATUS SNOMED Code(s): 062608830 Status and Disposition: Inpatient.
--- NOTE | 2017-09-24 20:24 | PN ---
Hospitalist Progress Note Date of Service: 09/24/17 Called to bedside to eval patient for resp distess. on exam patient resp rate 40 pt with increased work of breathing. Pt here with hx of pna, On exam patient confused noted to have moderate work of breathing. Pt tachycardic, and lungs diminished in the bases. Will transfer to icu for work of breathing for vapotherm will conisder morphine to allow vapotherm to work. Cxr pending. Case reviewed with attending.
[2017-09-24] MEDS: guaiFENesin ER TAB 600 MG PO SCH (20:29)
[2017-09-24] MEDS ORDERED: Furosemide IV* 10 MG/ML 2 ML VIAL (20 MG) IV SLOW PU ONE (20:47)
[2017-09-24] MEDS ORDERED: Piperacillin/Tazobac ADVAN(*) 3.375 GM in NS 0.9% 100 ML* 100 ML IVPB ONE (20:47)
--- NOTE | 2017-09-24 20:58 | RAD ---
INDICATION: Shortness of breath. COMPARISON: Comparison is made with a prior study from September 23, 2017. TECHNIQUE: A portable view of the chest was obtained. FINDINGS: The heart is within normal limits in size. There is a patchy infiltrate present throughout the mid and lower right lung field which has progressed from the prior exam. There appears to be a trace right pleural effusion. IMPRESSION: RIGHT LUNG INFILTRATE WITH TRACE PLEURAL EFFUSION DEMONSTRATING INTERVAL PROGRESSION MOST CONSISTENT WITH PNEUMONIA LESS LIKELY PULMONARY EDEMA.
[2017-09-24] MEDS ORDERED: Zosyn per Pharmacy* NOTE FOLLOW UP SCH (21:00)
[2017-09-24] MEDS ORDERED: Azithromycin IV(*) 500 MG in NS 0.9% 250 ML* 250 ML IVPB SCH (21:00)
--- NOTE | 2017-09-24 22:13 | CONS ---
CARDIOLOGY CONSULTATION: DATE OF CONSULT: 09/24/17 - ROOM #ICU-12 INDICATION FOR CONSULTATION: Elevated troponin levels, unresponsive episode, abnormal EKG. HISTORY OF PRESENT ILLNESS: The patient is an 82-year-old female with a history of COPD, chronic renal insufficiency, schizophrenia who was at [facility]. The patient was found unresponsive by the nursing staff. She was hypoxic. At that time, they could not establish a pulse and CPR was initiated. On arrival of the EMS, the patient was placed on oxygen. She was found to be in sinus tachycardia and was transported over to the emergency room. In the emergency room, the patient had elevated white cell count and an elevated troponin level of 0.08. The patient was admitted to the hospital for evaluation. Her EKG in the emergency room showed profound T-wave inversions in the anterolateral leads. They were new compared to EKG in 2016. When I went to see the patient, she was unable to respond to any of my questions. The patient does have a history of schizophrenia. She did nod yes or no to some questions, but I am not sure she understood exactly what I was asking. The patient did not verbalize any responses. PAST MEDICAL HISTORY: Significant for anemia, COPD, renal insufficiency, cardiomyopathy, schizophrenia. PAST SURGICAL HISTORY: None. OUTPATIENT MEDICATIONS: 1. Zantac 100 mg q.h.s. 2. Dulcolax. 3. Milk of magnesia. No other chronic medications. SOCIAL HISTORY: The patient is a resident at [facility]. She does not smoke or drink. Again, I could not get any discussion with the patient. FAMILY HISTORY: Not obtained. PHYSICAL EXAMINATION: Height is 5 feet 9 inches. Weight is 117 pounds. Temperature 98.3, heart rate is 72, blood pressure 126/38, respiratory rate is 24, oxygen saturation 97% on room air. Sclerae anicteric. Oropharynx is pink without erythema. Carotids are 2+ without bruits. JVD is normal. Thyroid is normal. Cardiac Exam: S1, S2 without any murmurs, rubs, or gallops. Lungs are clear to auscultation, bilateral. There is no dullness to percussion. Abdomen is soft, nontender, nondistended with normoactive bowel sounds. Extremities show no edema. I could not do any neurologic exam on the patient. LABORATORY DATA/DIAGNOSTIC STUDIES: Chemistry is within normal limits. BUN 24 , creatinine 1.04. Lactic acid was originally elevated at 5.2. AST and ALT are normal. Initial troponin level 0.08. Her peak troponin level was 0.23. CBC with a white count of 16, hemoglobin 11, hematocrit 38, platelet count 329. Again, her EKG shows normal sinus rhythm with profound T wave inversions in the anterolateral leads. Compared to an EKG of February 2016, these EKG changes are new. The patient's echocardiogram showed normal LV size and systolic function, ejection fraction of 50% to 55%, moderate aortic regurgitation, which could be underestimated given the quality of the echocardiogram. She had mild mitral regurgitation and mild tricuspid regurgitation. IMPRESSION: This is an 82-year-old female who had an episode of unresponsiveness at [facility]. Originally, she was felt to be pulseless and CPR was initiated. The patient subsequently was found to be in sinus tachycardia with a reasonable blood pressure. Her troponin levels are minimally elevated. The patient does have a markedly abnormal EKG with T-wave inversions in the anterolateral leads. What the cause of her anterolateral T wave inversions is I am not sure. It could be due to the episode of CPR causing some degree of myocardial stunning; however, her echocardiogram shows normal LV size and systolic function. No evidence of anterior wall hypokinesis. No significant valvular abnormalities. The patient is unable to respond to any of my questions. At this point, I am not exactly sure further cardiac workup is necessary. Again , she does have profound T-wave inversion changes. If we were to pursue with a stress test and her stress test was markedly abnormal, I am not convinced that we would pursue cardiac catheterization. The patient will continue on maximum medical therapy. Again, she has normal LV function. So, I am not convinced that she needs any heart failure medications; however, the patient may benefit from just beta- blockers. The patient will start an aspirin a day. [id number]/[facility] #: [id number] [facility]
[2017-09-25] MEDS: ZOSYN 3.375 GM Q8H per EXTENDED INFUSION IVPB SCH ×6 (01:59→18:38)
[2017-09-25] MEDS: Heparin VIAL(*) 5000 UNITS/ML VIAL (FIVE THOUSAND) SUBCUT SCH ×3 (05:17→21:25)
[2017-09-25] MEDS ORDERED: DOXYcycline IV* 100 MG in NS 0.9% 250 ML* 250 ML IVPB SCH ×2 (06:30→08:00)
[2017-09-25] MEDS: guaiFENesin ER TAB 600 MG PO SCH ×4 (07:32→21:25)
[2017-09-25] MEDS: Aspirin EC TAB* 81 MG TAB.EC PO SCH (07:32)
[2017-09-25] MEDS: Cholecalciferol TAB* 1000 UNITS PO SCH (07:32)
[2017-09-25 08:36] LABS: ABS Basophils 0 10^3/ul (0-0.2); ABS Eosinophils 0.2 10^3/ul (0-0.6); ABS Lymphocytes 0.9 10^3/ul (1.0-4.8); ABS Monocytes 0.3 10^3/ul (0-0.8); ABS Neutrophils 11.7 10^3/ul (1.5-7.7); ABS Nucleated RBC 0 10^3/ul; Eosinophil % 1.7 % (0-6); Hematocrit 34 % (35-47); Hemoglobin 11.1 g/dl (12.0-16.0); Mean Corpuscular HGB Conc 33 g/dl (31-36); Mean Corpuscular Hemoglobin 29 pg (27-31); Mean Corpuscular Volume 88 fL (80-97); Nucleated Red Blood Cells % 0.1; Platelet Count 215 10^3/ul (150-450); Red Blood Count 3.85 10^6/ul (4.00-5.40); Red Cell Distribution Width 16 % (10.5-15); White Blood Count 13.2 10^3/ul (3.5-10.8)
[2017-09-25 08:52] LABS: EGFR Non-African American 63.2 (>60)
[2017-09-25] MEDS ORDERED: Azithromycin IV(*) 500 MG in NS 0.9% 250 ML* 250 ML IVPB SCH (09:00)
[2017-09-25] MEDS ORDERED: Magnesium Sulfate IV* 3 GM in NS 0.9% 100 ML* 100 ML IVPB ONE (09:21)
[2017-09-25] MEDS ORDERED: NS 0.9% 1000 ML* 1,000 ML IV SCH (10:15)
--- NOTE | 2017-09-25 12:14 | RAD ---
Indication: Low urine output. Richards catheter in place. Comparison: No relevant prior exams available on the [facility] PACS for comparison. Technique: Ultrasound kidneys and urinary bladder. Report: 10.5 x 4.3 x 3.7 cm RIGHT kidney with normal cortical echogenicity demonstrates cortical atrophy with approximate 1.0 cm renal cortical thickness. No focal renal lesions, conspicuous stones, or hydronephrosis. Normal variant extrarenal pelvis. 11.0 x 4.8 x 4.2 cm LEFT kidney demonstrates mild cortical atrophy with 1.1 cm cortical thickness. Normal range renal cortical echogenicity. No focal renal lesions. Very mild LEFT pelvic caliectasis. No conspicuous stones. Prevoid urinary bladder volume estimated at 156 mL. Richards catheter in place. 3.5 mm urinary bladder wall thickness. No focal urinary bladder lesions evident. Bilateral ureteral jets documented. Post void residual volume estimated at 65 mL with the Richards catheter unclamped for 15 minutes. IMPRESSION: 1. Mild bilateral renal cortical atrophy. Mild LEFT hydronephrosis. 2. No conspicuous renal stones. 3. Bilateral ureteral jets documented. Post void residual volume estimated at 65 mL with the Richards catheter unclamped for 15 minutes. No focal bladder lesions evident.
--- NOTE | 2017-09-25 15:34 | PN ---
Subjective Date of Service: 09/25/17 Interval History: Patient alert but inarticulate. Complains of persistent but stable chest pain. Unable to complete further ROS. Discussed patient with son who states this is her baseline mentally and reaffirmed her full code status. Family History: Unchanged from Admission Social History: Unchanged from Admission Past Medical History: Unchanged from Admission Objective Active Medications: Acetaminophen (Tylenol Tab*) 650 mg PO Q6H PRN PRN Reason: PAIN Last Admin: 09/24/17 20:28 Dose: 650 mg Aspirin (Aspirin Ec Tab*) 81 mg PO DAILY [facility] Last Admin: 09/25/17 07:32 Dose: Not Given Bisacodyl (Dulcolax Supp*) 10 mg IN DAILY PRN PRN Reason: CONSTIPATION Cholecalciferol (Vitamin D Tab*) 1,000 units PO DAILY [facility] Last Admin: 09/25/17 07:32 Dose: Not Given Famotidine (Pepcid Tab*) 40 mg PO QPM CARRI PRN Reason: Protocol Last Admin: 09/24/17 17:11 Dose: Not Given Guaifenesin (Mucinex*) 1,200 mg PO BID [facility] Last Admin: 09/25/17 07:32 Dose: Not Given Heparin Sodium (Porcine) (Heparin Vial(*)) 5,000 units SUBCUT Q8HR [facility] Last Admin: 09/25/17 13:49 Dose: 5,000 units Piperacillin Sod/Tazobactam (Sod 3.375 gm/ Sodium Chloride) 100 mls @ 25 mls/ hr IVPB Q8H [facility] Last Admin: 09/25/17 10:05 Dose: 25 mls/hr Sodium Chloride (Ns 0.9% 1000 Ml*) 1,000 mls @ 50 mls/hr IV .PER RATE [facility] Magnesium Hydroxide (Milk Of Magnesia Liq*) 30 ml PO DAILY PRN PRN Reason: CONSTIPATION Pharmacy Consult (Zosyn Per Pharmacy*) 1 note FOLLOW UP .ZOSYN PER PHARMACY [facility] Vital Signs - 8 hr 09/25/17 09/25/17 09/25/17 07:30 07:36 07:59 Temperature 99.0 F Pulse Rate Respiratory 32 Rate Blood Pressure (mmHg) O2 Sat by Pulse 100 Oximetry 09/25/17 09/25/17 09/25/17 08:00 09:00 10:00 Temperature Pulse Rate 73 71 70 Respiratory 33 25 25 Rate Blood Pressure 134/42 123/38 138/47 (mmHg) O2 Sat by Pulse 100 100 99 Oximetry 09/25/17 09/25/17 09/25/17 10:56 11:00 12:00 Temperature 98.2 F Pulse Rate 70 72 68 Respiratory 30 27 20 Rate Blood Pressure 123/37 128/45 131/38 (mmHg) O2 Sat by Pulse 100 100 100 Oximetry 09/25/17 09/25/17 13:00 14:00 Temperature Pulse Rate 67 74 Respiratory 21 27 Rate Blood Pressure 133/47 141/45 (mmHg) O2 Sat by Pulse 100 100 Oximetry Oxygen Devices in Use Now: High Flow Heated Nasal Cannula Appearance: Patient is an 82yo female who appears stated age and is sitting in the bed with increased WOB. Eyes: No Scleral Icterus, PERRLA Ears/Nose/Mouth/Throat: NL Teeth, Lips, Gums, Clear Oropharnyx, Mucous Membranes Moist Neck: NL Appearance and Movements; NL JVP, Trachea Midline Respiratory: Symmetrical Chest Expansion and Respiratory Effort, - - Rhonchi throughout. Consistent with previous exam. Cardiovascular: NL Sounds; No Murmurs; No JVD, RRR, No Edema Abdominal: NL Sounds; No Tenderness; No Distention, No Hepatosplenomegaly Lymphatic: No Cervical Adenopathy Extremities: No Edema, No Clubbing, Cyanosis Skin: No Rash or Ulcers, No Nodules or Sclerosis Neurological: - - No focal deficits, Alert and oriented only to self. Result Diagrams: 09/25/17 08:19 09/25/17 08:19 Additional Lab and Data: Lab Results Microbiology and Other Data: Microbiology 09/23/17 15:40 Legionella Urinary Antigen - Final Urine Negative Legionella Antigen Streptococcus pneumoniae Ag Screen - Final Positive S. Pneumo Antigen Assess/Plan/Problems-Billing Assessment: Patient is an 82yo female with dementia, schizophrenia, COPD, CKD, Cardiomyopathy, anemia who presents after being unresponsive with a possible pulseless episode found to have pneumonia due to strep pneumonia and EKG changes with T wave inversions in the anterior leads. - Patient Problems (1) Pneumonia Current Visit: No Status: Acute Code(s): J18.9 - PNEUMONIA, UNSPECIFIED ORGANISM SNOMED Code(s): 511519158 Comment: Blood cultures negative. Chest xray shows infiltrate. Urine positive for S. pneumo antigen. Patient transferred to ICU for Vapotherm overnight due to acute respiratory compensation. Antibiotic coverage broadened to Zosyn for possible aspiration component despite S. Pneumo antigen positivity. (2) Altered mental status Current Visit: No Status: Acute Code(s): R41.82 - ALTERED MENTAL STATUS, UNSPECIFIED SNOMED Code(s): 633462546 Comment: Stable, Around baseline per son. Suspect this is related to infection. Continue supportive care. CT head negative. No focal deficits. (3) Elevated troponin Current Visit: No Status: Acute Code(s): R79.89 - OTHER SPECIFIED ABNORMAL FINDINGS OF BLOOD CHEMISTRY SNOMED Code(s): 052421322 Comment: Chest pain reproducible with palpation with elevated troponin peaked at .23. Possibly demand ischemia or trauma from Chest Compressions. Appreciate cardiology input. not good candidate for Cardiac Cath right now. Will discuss stress test at later date with family. Discontinue heparin drip, continue aspirin. Lipids and A1c WNL. (4) Schizophrenia Current Visit: No Status: Acute Code(s): F20.9 - SCHIZOPHRENIA, UNSPECIFIED SNOMED Code(s): 63664732 Comment: Continue supportive care. Negative symptoms could be contributing to AMS. Previously maintained on Haloperidol. Discontinued possibly due to QT interval or EPS. Will not resume at this time. (5) Anemia Current Visit: No Status: Chronic Code(s): D64.9 - ANEMIA, UNSPECIFIED SNOMED Code(s): 927892567 Comment: At baseline. (6) Cardiomyopathy Current Visit: No Status: Chronic Code(s): I42.9 - CARDIOMYOPATHY, UNSPECIFIED SNOMED Code(s): 63306900 Comment: Normal EF on Echo with no focal wall motion abnormalities. (7) Oliguria Current Visit: Yes Status: Acute Code(s): R34 - ANURIA AND OLIGURIA SNOMED Code(s): 90892816 Comment: Normal Creatinine. Poor Urine output after Lasix Therapy. US kidneys and bladder shows slight left hydronephrosis with B/L ureteral jets and no stones. Improving with gentle hydration. (8) Chronic kidney disease Current Visit: No Status: Chronic Code(s): N18.9 - CHRONIC KIDNEY DISEASE, UNSPECIFIED SNOMED Code(s): 314966807 Comment: At baseline. (9) Full code status Current Visit: No Status: Acute Code(s): Z78.9 - OTHER SPECIFIED HEALTH STATUS SNOMED Code(s): 929780529 Status and Disposition: Inpatient.
[2017-09-25] MEDS: Famotidine TAB* 20 MG PO SCH (18:36)
[2017-09-25] MEDS: Acetaminophen TAB* 325 MG PO PRN (21:13)
[2017-09-25] MEDS: Acetaminophen SUPP* 650 MG SUPP PR PRN (21:50)
[2017-09-26] MEDS: ZOSYN 3.375 GM Q8H per EXTENDED INFUSION IVPB SCH ×4 (01:58→19:29)
[2017-09-26] MEDS: Heparin VIAL(*) 5000 UNITS/ML VIAL (FIVE THOUSAND) SUBCUT SCH ×3 (05:31→21:57)
[2017-09-26] MEDS: Acetaminophen SUPP* 650 MG SUPP PR PRN (05:32)
[2017-09-26 05:36] LABS: ABS Basophils 0.2 10^3/ul (0-0.2); ABS Eosinophils 0.3 10^3/ul (0-0.6); ABS Lymphocytes 1.4 10^3/ul (1.0-4.8); ABS Monocytes 0.7 10^3/ul (0-0.8); ABS Neutrophils 15.3 10^3/ul (1.5-7.7); ABS Nucleated RBC 0 10^3/ul; Eosinophil % 1.7 % (0-6); Hematocrit 32 % (35-47); Hemoglobin 10.5 g/dl (12.0-16.0); Mean Corpuscular HGB Conc 33 g/dl (31-36); Mean Corpuscular Hemoglobin 29 pg (27-31); Mean Corpuscular Volume 87 fL (80-97); Nucleated Red Blood Cells % 0; Platelet Count 223 10^3/ul (150-450); Red Blood Count 3.68 10^6/ul (4.00-5.40); Red Cell Distribution Width 16 % (10.5-15); White Blood Count 17.8 10^3/ul (3.5-10.8)
[2017-09-26 05:54] LABS: EGFR Non-African American 69.7 (>60)
[2017-09-26] MEDS: Cholecalciferol TAB* 1000 UNITS PO SCH (07:39)
[2017-09-26] MEDS: Aspirin EC TAB* 81 MG TAB.EC PO SCH (07:39)
[2017-09-26] MEDS: guaiFENesin ER TAB 600 MG PO SCH ×2 (07:40→21:53)
[2017-09-26] MEDS: cefTRIAXone(*) 1 GM in NS 0.9% 50 ML* 50 ML IVPB SCH (11:36)
[2017-09-26] MEDS ORDERED: Azithromycin IV(*) 250 MG in NS 0.9% 250 ML* 250 ML IVPB SCH (12:00)
[2017-09-26] MEDS ORDERED: NS 0.9% 500 ML* 500 ML IV ONE ×2 (12:01→20:09)
--- NOTE | 2017-09-26 12:14 | CONS ---
CONSULTING REPORT: DATE OF CONSULT: 09/26/17 REQUESTING PROVIDER: DENAE Sung. CONSULTING SERVICE: Infectious Disease. REASON FOR CONSULTATION: Leukocytosis, pneumonia. IMPRESSION: 1. Out of hospital arrest in the setting of chronic aspiration and extensive right- sided pneumonia seen on chest x-ray from 09/23/17 and 09/24/17. She is improving as far as her acute hypoxemic respiratory failure, which was present on admission. However, she has ongoing, in fact worsening, leukocytosis. She did have a fever to 39 degrees overnight as well. Differential diagnosis include developing empyema versus progression of underlying known infection versus allergic reaction to ZOSYN. 2. Baseline dementia. 3. Chronic obstructive pulmonary disease, not on supplemental oxygen at home. 4. Cardiomyopathy. RECOMMENDATIONS: Stop Zosyn, start ceftriaxone 1 g a day and azithromycin 250 mg IV daily. She has a swallow evaluation pending. Repeat the chest x-ray to evaluate for changes in the pleural space and see if there is progression of the infiltrate, which I do suspect. HISTORY OF PRESENT ILLNESS: This is an 82-year-old woman with dementia. She cannot provide history, which was obtained instead from review of medical record and discussion with DENAE Sung. She lives at [facility] where she was found to be unresponsive the morning of admission, which is 09/23/17. She was saturating in the 80s, started on oxygen. They felt she lost her pulse. They started CPR. She was found to have sinus tachycardia when the EMS came. Chest x- ray showed right-sided infiltrate. White count was 12. She was febrile. She was started on Zosyn for likely aspiration pneumonia. The pneumococcal antigen is positive. Blood cultures are negative. There is not a sputum culture available. Urine culture negative. Legionella antigen negative. She required high flow oxygen 40 L a minute, which was tapered down to 15. Her white count was down to 12 yesterday and then up to 18,000 today. She is in the ICU now down to 15 L per minute. She denies pain or shortness of breath. She does not recall an infection requiring hospitalization recently. PAST MEDICAL HISTORY: 1. Dementia. 2. Schizophrenia. 3. COPD. 4. Chronic kidney disease. 5. History of cardiomyopathy. 6. Anemia. MEDICATIONS: 1. Tylenol. 2. Aspirin. 3. Cholecalciferol. 4. Famotidine. 5. Zosyn. ALLERGIES: No known drug allergies. FAMILY HISTORY: Unknown. SOCIAL HISTORY: She lives at [facility]. REVIEW OF SYSTEMS: All negative except as noted above. PHYSICAL EXAM: Vital Signs: Temperature is 37, T-max 39, heart rate 70, respiratory rate 30, blood pressure 125/53, oxygen saturation 100% on 15 L by nasal cannula. In general, she is awake, not in distress. Neurologic: She answers questions. She is oriented x2. Follows commands. She is alert. Neck is supple without mass. Lymph Nodes: There is no inguinal, axillary, or epitrochlear lymphadenopathy. Heart is regular rate and rhythm without murmurs, rubs, or gallops. Lungs have decreased breath sounds throughout the right lung pires. There is no wheeze or rale. Abdomen: Soft, nontender, nondistended. There are bowel sounds present. Skin: There is no rash or splinter hemorrhages. Musculoskeletal: There is no spine tenderness to palpation. No joint synovitis. DIAGNOSTIC STUDIES/LAB DATA: White blood cell count 17, hemoglobin 10, platelets 223, creatinine is 0.7. Please see impressions and recommendations outlined above, which I have discussed with DENAE Sung. Thank you for asking me to see Ms. Meade in consultation. [id number]/CPS #: [id number] CHARLENE
--- NOTE | 2017-09-26 12:28 | PN ---
Subjective Date of Service: 09/26/17 Interval History: Patient much more lucid today, able to respond appropriately to questioning. Complains of improved chest pain. Reproducible with palpation. Patient has no other complaints. Able to be weaned off of vapotherm, on 10L NC at this time. Family History: Unchanged from Admission Social History: Unchanged from Admission Past Medical History: Unchanged from Admission Objective Active Medications: Acetaminophen (Tylenol Tab*) 650 mg PO Q6H PRN PRN Reason: PAIN Last Admin: 09/24/17 20:28 Dose: 650 mg Acetaminophen (Tylenol Supp*) 650 mg OK Q4H PRN PRN Reason: FEVER/PAIN Last Admin: 09/26/17 05:32 Dose: 650 mg Aspirin (Aspirin Ec Tab*) 81 mg PO DAILY [facility] Last Admin: 09/26/17 07:39 Dose: Not Given Bisacodyl (Dulcolax Supp*) 10 mg OK DAILY PRN PRN Reason: CONSTIPATION Cholecalciferol (Vitamin D Tab*) 1,000 units PO DAILY [facility] Last Admin: 09/26/17 07:39 Dose: Not Given Famotidine (Pepcid Tab*) 40 mg PO QPM CARRI PRN Reason: Protocol Last Admin: 09/25/17 18:36 Dose: Not Given Guaifenesin (Mucinex*) 1,200 mg PO BID [facility] Last Admin: 09/26/17 07:40 Dose: Not Given Heparin Sodium (Porcine) (Heparin Vial(*)) 5,000 units SUBCUT Q8HR [facility] Last Admin: 09/26/17 05:31 Dose: 5,000 units Sodium Chloride (Ns 0.9% 1000 Ml*) 1,000 mls @ 75 mls/hr IV .PER RATE [facility] Ceftriaxone Sodium 1 gm/ (Sodium Chloride) 50 mls @ 200 mls/hr IVPB Q24H [facility] Last Admin: 09/26/17 11:36 Dose: 200 mls/hr Azithromycin 250 mg/ Sodium (Chloride) 250 mls @ 250 mls/hr IVPB Q24H [facility] Sodium Chloride (Ns 0.9% 500 Ml*) 500 mls @ 1,000 mls/hr IV ONCE ONE Stop: 09/26/17 12:30 Last Admin: 09/26/17 12:13 Dose: 1,000 mls/hr Magnesium Hydroxide (Milk Of Magnesia Liq*) 30 ml PO DAILY PRN PRN Reason: CONSTIPATION Vital Signs - 8 hr 09/26/17 09/26/17 09/26/17 05:00 05:51 06:00 Temperature Pulse Rate Respiratory 31 28 31 Rate Blood Pressure 135/50 (mmHg) O2 Sat by Pulse 95 95 Oximetry 09/26/17 09/26/17 09/26/17 07:00 07:01 07:53 Temperature 98.6 F Pulse Rate 60 68 Respiratory 20 25 Rate Blood Pressure 126/40 (mmHg) O2 Sat by Pulse 97 97 Oximetry 09/26/17 09/26/17 09/26/17 07:54 08:00 08:01 Temperature Pulse Rate Respiratory 34 32 29 Rate Blood Pressure 136/58 (mmHg) O2 Sat by Pulse Oximetry 09/26/17 09/26/17 09/26/17 08:03 09:00 09:01 Temperature Pulse Rate 65 63 Respiratory 14 19 Rate Blood Pressure 106/33 (mmHg) O2 Sat by Pulse 100 100 100 Oximetry 09/26/17 09/26/17 09/26/17 09:36 10:00 10:01 Temperature Pulse Rate 88 71 74 Respiratory 26 31 34 Rate Blood Pressure 125/53 (mmHg) O2 Sat by Pulse 100 100 100 Oximetry 09/26/17 09/26/17 09/26/17 11:00 11:01 12:00 Temperature Pulse Rate 75 74 67 Respiratory 31 31 23 Rate Blood Pressure 118/44 109/46 (mmHg) O2 Sat by Pulse 98 98 98 Oximetry Oxygen Devices in Use Now: High Flow Nasal Cannula Appearance: Patient is an 82yo female who appears stated age and is sitting in the bed in [facility]. Eyes: No Scleral Icterus, PERRLA Ears/Nose/Mouth/Throat: NL Teeth, Lips, Gums, Clear Oropharnyx, Mucous Membranes Moist Neck: NL Appearance and Movements; NL JVP, Trachea Midline Respiratory: Symmetrical Chest Expansion and Respiratory Effort, - - Rhonchi throughout, improved greatly from previous exam. Cardiovascular: NL Sounds; No Murmurs; No JVD, RRR, No Edema Abdominal: NL Sounds; No Tenderness; No Distention, No Hepatosplenomegaly Lymphatic: No Cervical Adenopathy Extremities: No Edema, No Clubbing, Cyanosis Skin: No Rash or Ulcers, No Nodules or Sclerosis Neurological: NL Sensation, NL Muscle Strength and Tone, - - CN II-XII intact. Alert and Oriented only to self. Result Diagrams: 09/26/17 05:23 09/26/17 05:23 Additional Lab and Data: Lab Results Microbiology and Other Data: Microbiology 09/23/17 15:40 Legionella Urinary Antigen - Final Urine Negative Legionella Antigen Streptococcus pneumoniae Ag Screen - Final Positive S. Pneumo Antigen Assess/Plan/Problems-Billing Assessment: Patient is an 82yo female with dementia, schizophrenia, COPD, CKD, Cardiomyopathy, anemia who presents after being unresponsive with a possible pulseless episode found to have pneumonia due to strep pneumonia and EKG changes with T wave inversions in the anterior leads. - Patient Problems (1) Severe sepsis Current Visit: Yes Status: Acute Code(s): A41.9 - SEPSIS, UNSPECIFIED ORGANISM; R65.20 - SEVERE SEPSIS WITHOUT SEPTIC SHOCK SNOMED Code(s): 93058878 Comment: Resolved. Met SIRS criteria with Leukocytosis, Fever, Tachycardia. Pulmonary Source. SOFA score 0 on presentation (2) Pneumonia Current Visit: No Status: Acute Code(s): J18.9 - PNEUMONIA, UNSPECIFIED ORGANISM SNOMED Code(s): 072623839 Comment: Blood cultures negative. Chest xray shows infiltrate. Urine positive for S. pneumo antigen. Patient transferred to ICU for Vapotherm due to acute respiratory decompensation. Able to be weaned back to High-Flow Nasal Cannula. Antibiotic coverage broadened to Zosyn for possible aspiration component despite S. Pneumo antigen positivity. WBC count increasing and fevers overnight despite clinical improvement. Could be related to Zosyn. ID consult pending. (3) Altered mental status Current Visit: No Status: Acute Code(s): R41.82 - ALTERED MENTAL STATUS, UNSPECIFIED SNOMED Code(s): 079741089 Comment: Improved, Around baseline per son. Suspect this is related to infection. Continue supportive care. CT head negative. No focal deficits. (4) Elevated troponin Current Visit: No Status: Acute Code(s): R79.89 - OTHER SPECIFIED ABNORMAL FINDINGS OF BLOOD CHEMISTRY SNOMED Code(s): 556373884 Comment: Chest pain reproducible with palpation with elevated troponin peaked at .23. Possibly demand ischemia or trauma from Chest Compressions. Appreciate cardiology input. not good candidate for Cardiac Cath right now. Will discuss stress test at later date with family. Continue aspirin. Lipids and A1c WNL. (5) Schizophrenia Current Visit: No Status: Acute Code(s): F20.9 - SCHIZOPHRENIA, UNSPECIFIED SNOMED Code(s): 11001898 Comment: Continue supportive care. Negative symptoms could be contributing to AMS. Previously maintained on Haloperidol. Discontinued possibly due to QT interval or EPS. Will not resume at this time. (6) Anemia Current Visit: No Status: Chronic Code(s): D64.9 - ANEMIA, UNSPECIFIED SNOMED Code(s): 228436862 Comment: At baseline. (7) Cardiomyopathy Current Visit: No Status: Chronic Code(s): I42.9 - CARDIOMYOPATHY, UNSPECIFIED SNOMED Code(s): 64319306 Comment: Normal EF on Echo with no focal wall motion abnormalities. (8) Oliguria Current Visit: Yes Status: Acute Code(s): R34 - ANURIA AND OLIGURIA SNOMED Code(s): 12208541 Comment: Normal Creatinine. Poor Urine output after Lasix Therapy. US kidneys and bladder shows slight left hydronephrosis with B/L ureteral jets and no stones. Remains poor. Will bolus and increase fluids. Monitor UOP closely. (9) Chronic kidney disease Current Visit: No Status: Chronic Code(s): N18.9 - CHRONIC KIDNEY DISEASE, UNSPECIFIED SNOMED Code(s): 558924294 Comment: At baseline. (10) Full code status Current Visit: No Status: Acute Code(s): Z78.9 - OTHER SPECIFIED HEALTH STATUS SNOMED Code(s): 776201106 Status and Disposition: Inpatient.
[2017-09-26] MEDS: NS 0.9% 1000 ML* 1,000 ML IV SCH ×2 (15:29→21:58)
[2017-09-26] MEDS: Famotidine TAB* 20 MG PO SCH (18:12)
[2017-09-27] MEDS: Heparin VIAL(*) 5000 UNITS/ML VIAL (FIVE THOUSAND) SUBCUT SCH ×3 (06:12→21:31)
--- NOTE | 2017-09-27 09:24 | PN ---
Progress Note - Progress Note Date of Service: 09/27/17 SOAP: Subjective: CC: pneumonia HPI: 82 year old woman with R lung pneumonia; had another fever overnight and now diffuse rash, she can't say if itches. No diarrhea. Still on 5L NC. Objective: Vital Signs Temp 37.7 C 09/27/17 08:00 Pulse 76 09/27/17 08:00 Resp 25 09/27/17 08:00 BP 118/53 09/27/17 08:00 Pulse Ox 100 09/27/17 08:00 Intake & Output 09/26/17 09/27/17 09/27/17 18:59 06:59 18:59 Intake Total 1411 1750 Output Total 250 1135 45 Balance 1161 615 -45 Weight 123 lb 10.869 oz Intake: IV Fluids 896 1650 NS (0.9%) 896 1650 IVPB 265 ABX 265 Oral 250 100 Output: Richards 250 1135 45 Gen:awake, no distress HEENT: no thrush Neuro: Ox2 Heart:RRR no murmur Lungs: Decr BS R lung pires Abd:+BS NTND soft Skin: diffuse erythema, blanching MSK: no joint synovitis Microbiology 09/23/17 11:25 Aerobic Blood Culture - Preliminary Blood Venous No Growth Day 3 Anaerobic Blood Culture - Preliminary No Growth Day 3 09/23/17 11:22 Aerobic Blood Culture - Preliminary Blood Venous No Growth Day 3 Anaerobic Blood Culture - Preliminary No Growth Day 3 Assessment: 1. fever, rash; suspect drug reaction, zosyn stopped yesterday is possible culprit 2. extensive R pneumonia 3. out of hospital arrest Plan: 1. continue ceftriaxone/azithro, labs and xray tomorrow Discussed with Mela Boogie NP
[2017-09-27 09:38] LABS: ABS Basophils 0 10^3/ul (0-0.2); ABS Eosinophils 0.3 10^3/ul (0-0.6); ABS Lymphocytes 1.1 10^3/ul (1.0-4.8); ABS Monocytes 0.6 10^3/ul (0-0.8); ABS Nucleated RBC 0 10^3/ul; Eosinophil % 2.4 % (0-6); Hematocrit 31 % (35-47); Hemoglobin 9.9 g/dl (12.0-16.0); Mean Corpuscular HGB Conc 32 g/dl (31-36); Mean Corpuscular Hemoglobin 29 pg (27-31); Mean Corpuscular Volume 89 fL (80-97); Mean Platelet Volume 8.9 um3 (7.4-10.4); Nucleated Red Blood Cells % 0; Platelet Count 183 10^3/ul (150-450); Red Blood Count 3.48 10^6/ul (4.00-5.40); Red Cell Distribution Width 16 % (10.5-15); White Blood Count 14.1 10^3/ul (3.5-10.8)
[2017-09-27] MEDS: Cholecalciferol TAB* 1000 UNITS PO SCH (09:46)
[2017-09-27 09:56] LABS: EGFR Non-African American 92.2 (>60)
[2017-09-27] MEDS ORDERED: Azithromycin TAB* 250 MG PO SCH (10:00)
[2017-09-27] MEDS: Aspirin EC TAB* 81 MG TAB.EC PO SCH (10:03)
[2017-09-27] MEDS: guaiFENesin ER TAB 600 MG PO SCH (10:03)
[2017-09-27] MEDS ORDERED: guaiFENesin LIQ* 100 MG/5 ML UDC PO PRN (10:07)
[2017-09-27] MEDS: Aspirin 81 mg CHEW TAB* 81 MG TAB.CHEW PO SCH (10:52)
[2017-09-27] MEDS: cefTRIAXone(*) 1 GM in NS 0.9% 50 ML* 50 ML IVPB SCH (10:52)
[2017-09-27] MEDS: NS 0.9% 1000 ML* 1,000 ML IV SCH (11:00)
[2017-09-27] MEDS: Azithromycin IV(*) 250 MG in NS 0.9% 250 ML* 250 ML IVPB SCH (11:23)
--- NOTE | 2017-09-27 14:07 | PN ---
Subjective Date of Service: 09/27/17 Interval History: Ms. Meade is very difficult to understand and her communication is generally unintelligible. She appears to not be in any acute distress. She does indicate that she is thirsty and is given a drink during my exam. Family History: Unchanged from Admission Social History: Unchanged from Admission Past Medical History: Unchanged from Admission Objective Active Medications: Acetaminophen (Tylenol Tab*) 650 mg PO Q6H PRN Acetaminophen (Tylenol Supp*) 650 mg [place] Q4H PRN Aspirin (Aspirin 81 Mg Chew Tab*) 81 mg PO DAILY CARRI Bisacodyl (Dulcolax Supp*) 10 mg [place] DAILY PRN Cholecalciferol (Vitamin D Tab*) 1,000 units PO DAILY CARRI Famotidine (Pepcid Tab*) 40 mg PO QPM CARRI Guaifenesin (Robitussin*) 5 ml PO Q4H PRN Heparin Sodium (Porcine) (Heparin Vial(*)) 5,000 units SUBCUT Q8HR CARRI Sodium Chloride (Ns 0.9% 1000 Ml*) 1,000 mls @ 75 mls/hr IV .PER RATE CARRI Ceftriaxone Sodium 1 gm/ (Sodium Chloride) 50 mls @ 200 mls/hr IVPB Q24H CARRI Azithromycin 250 mg/ Sodium (Chloride) 250 mls @ 250 mls/hr IVPB Q24H CARRI Magnesium Hydroxide (Milk Of Magnesia Liq*) 30 ml PO DAILY PRN Vital Signs: Temp Pulse Resp BP Pulse Ox 100 F 70 23 136/49 98 09/27/17 12:00 09/27/17 13:01 09/27/17 13:01 09/27/17 13:01 09/27/17 13:01 Oxygen Devices in Use Now: Nasal Cannula Appearance: Female lying in bed in NAD Eyes: No Scleral Icterus Ears/Nose/Mouth/Throat: Mucous Membranes Moist Neck: Trachea Midline Respiratory: Symmetrical Chest Expansion and Respiratory Effort, - - Diminished in right base Cardiovascular: NL Sounds; No Murmurs; No JVD, No Edema Abdominal: NL Sounds; No Tenderness; No Distention Extremities: No Edema Skin: - - Diffuse erythematous rash Neurological: NL Muscle Strength and Tone, - - Alert, minimally verbal, able to indicate yes and no and some small things like asking for water Nutrition: Taking PO's Result Diagrams: 09/27/17 09:27 09/27/17 09:22 Additional Lab and Data: . Microbiology and Other Data: . Assess/Plan/Problems-Billing Assessment: Ms. Meade is an 82yo female with dementia, schizophrenia, COPD, CKD, Cardiomyopathy, anemia who presents after being unresponsive with a possible pulseless episode for which CPR was started and then aborted after a pulse was found, now with pneumonia due to strep pneumonia and EKG changes with T wave inversions in the anterior leads. - Patient Problems (1) Acute respiratory failure with hypoxia Comment: - Resolving, now on 5L NC - Secondary to pneumonia with treatment as per below (2) Pneumonia Comment: - Improving. - Blood cultures negative. Chest xray shows infiltrate. Urine positive for S. pneumo antigen. - Appreciate ID consult, continue ceftriaxone and azithromycin. (3) Severe sepsis Comment: - Resolved. Met SIRS criteria with Leukocytosis, Fever, Tachycardia. Pulmonary Source. SOFA score 0 on presentation (4) Altered mental status Comment: - Improved, Around baseline per son. - Suspect this is related to infection. CT head negative. No focal deficits. (5) Elevated troponin Comment: - Chest pain reproducible with palpation with elevated troponin peaked at .23. Possibly demand ischemia or trauma from Chest Compressions. - Appreciate cardiology input. not good candidate for Cardiac Cath right now. Will discuss stress test at later date with family. Continue aspirin. (6) Oliguria Comment: - Normal Creatinine. US kidneys and bladder shows slight left hydronephrosis with B/L ureteral jets and no stones. (7) Electrolyte abnormality Comment: - Continue potassium and magnesium supplementation. (8) Schizophrenia Comment: Continue supportive care. Negative symptoms could be contributing to AMS. Previously maintained on Haloperidol. Discontinued possibly due to QT interval or EPS. Will not resume at this time. (9) Anemia Comment: At baseline. (10) Cardiomyopathy Comment: Normal EF on Echo with no focal wall motion abnormalities. (11) Chronic kidney disease Comment: At baseline. (12) DVT prophylaxis Comment: - Continue SQ Heparin. (13) Full code status Comment: Status and Disposition: Inpatient. Anticipate discharge to [facility] when medically stable.
[2017-09-27] MEDS ORDERED: Magnesium Sulfate 2 GM IV* 2 GM/50 ML BAG IVPB ONE (14:17)
[2017-09-27] MEDS: KCL 20 MEQ/100 ML IVPREMIX* 20 MEQ/100 ML BAG IV SCH ×3 (16:25→21:38)
[2017-09-27] MEDS: Famotidine TAB* 20 MG PO SCH (16:26)
[2017-09-27] MEDS ORDERED: KCL 20 MEQ/100 ML IVPREMIX* 20 MEQ/100 ML BAG IV SCH (22:00)
[2017-09-27] MEDS ORDERED: KCL 20 MEQ/100 ML IVPREMIX* 20 MEQ/100 ML BAG IV ONE (22:00)
[2017-09-27] MEDS: Acetaminophen TAB* 325 MG PO PRN (23:55)
[2017-09-28] MEDS: Heparin VIAL(*) 5000 UNITS/ML VIAL (FIVE THOUSAND) SUBCUT SCH ×3 (05:54→21:33)
[2017-09-28 06:38] LABS: EGFR Non-African American 93.9 (>60)
[2017-09-28] MEDS: Aspirin 81 mg CHEW TAB* 81 MG TAB.CHEW PO SCH (07:37)
[2017-09-28] MEDS: Cholecalciferol TAB* 1000 UNITS PO SCH (07:37)
--- NOTE | 2017-09-28 08:02 | RAD ---
HISTORY: pneumonia COMPARISONS: September 24, 2012 VIEWS: 1: frontal portable view of the chest at 7:45 AM FINDINGS: LINES AND TUBES: None. CARDIOMEDIASTINAL SILHOUETTE: The cardiomediastinal silhouette is normal for portable technique. PLEURA: There is a small to moderate right pleural effusion. LUNG PARENCHYMA: There is a diffuse reticular pattern with indistinct pulmonary vessels. There is more confluent alveolar opacification of the right lower lung. ABDOMEN: The upper abdomen is clear. There is no subphrenic gas. BONES AND SOFT TISSUES: No bone or soft tissue abnormalities are noted. IMPRESSION: 1. PULMONARY INTERSTITIAL EDEMA. 2. SMALL TO MODERATE RIGHT PLEURAL EFFUSION. 3. RIGHT BASILAR ATELECTASIS VERSUS CONSOLIDATION
--- NOTE | 2017-09-28 10:37 | PN ---
Subjective Date of Service: 09/28/17 Family History: Unchanged from Admission Social History: Unchanged from Admission Past Medical History: Unchanged from Admission Objective Active Medications: Acetaminophen (Tylenol Tab*) 650 mg PO Q6H PRN Acetaminophen (Tylenol Supp*) 650 mg [place] Q4H PRN Aspirin (Aspirin 81 Mg Chew Tab*) 81 mg PO DAILY CARRI Bisacodyl (Dulcolax Supp*) 10 mg [place] DAILY PRN Cholecalciferol (Vitamin D Tab*) 1,000 units PO DAILY CARRI Famotidine (Pepcid Tab*) 40 mg PO QPM CARRI Guaifenesin (Robitussin*) 5 ml PO Q4H PRN Heparin Sodium (Porcine) (Heparin Vial(*)) 5,000 units SUBCUT Q8HR CARRI Sodium Chloride (Ns 0.9% 1000 Ml*) 1,000 mls @ 75 mls/hr IV .PER RATE CARRI Ceftriaxone Sodium 1 gm/ (Sodium Chloride) 50 mls @ 200 mls/hr IVPB Q24H CARRI Azithromycin 250 mg/ Sodium (Chloride) 250 mls @ 250 mls/hr IVPB Q24H CARRI Magnesium Hydroxide (Milk Of Magnesia Liq*) 30 ml PO DAILY PRN Vital Signs: Temp Pulse Resp BP Pulse Ox 98.8 F 72 20 144/35 98 09/28/17 03:21 09/28/17 07:22 09/28/17 07:53 09/28/17 07:22 09/28/17 07:22 Oxygen Devices in Use Now: Nasal Cannula Result Diagrams: 09/27/17 09:27 09/28/17 06:04 Additional Lab and Data: . Microbiology and Other Data: . Assess/Plan/Problems-Billing Assessment: Ms. Meade is an 82yo female with dementia, schizophrenia, COPD, CKD, Cardiomyopathy, anemia who presents after being unresponsive with a possible pulseless episode for which CPR was started and then aborted after a pulse was found, now with pneumonia due to strep pneumonia and EKG changes with T wave inversions in the anterior leads. - Patient Problems (1) Acute respiratory failure with hypoxia Comment: - Resolving, now on 2L NC - Secondary to pneumonia with treatment as per below (2) Pneumonia Comment: - Improving. - Blood cultures negative. Chest xray shows infiltrate. Urine positive for S. pneumo antigen. - Appreciate ID consult, continue ceftriaxone and azithromycin. (3) Severe sepsis Comment: - Resolved. Met SIRS criteria with Leukocytosis, Fever, Tachycardia. Pulmonary Source. SOFA score 0 on presentation (4) Altered mental status Comment: - Improved, Around baseline per son. - Suspect this is related to infection. CT head negative. No focal deficits. (5) Elevated troponin Comment: - Chest pain reproducible with palpation with elevated troponin peaked at .23. Possibly demand ischemia or trauma from Chest Compressions. - Appreciate cardiology input. not good candidate for Cardiac Cath right now. Will discuss stress test at later date with family. Continue aspirin. (6) Electrolyte abnormality Comment: - Continue potassium and magnesium supplementation. (7) Schizophrenia Comment: Continue supportive care. Negative symptoms could be contributing to AMS. Previously maintained on Haloperidol. Discontinued possibly due to QT interval or EPS. Will not resume at this time. (8) Anemia Comment: At baseline. (9) Cardiomyopathy Comment: Normal EF on Echo with no focal wall motion abnormalities. (10) Chronic kidney disease Comment: At baseline. (11) DVT prophylaxis Comment: - Continue SQ Heparin. (12) Full code status Comment: Status and Disposition: Inpatient. Anticipate discharge to [facility] when medically stable.
--- NOTE | 2017-09-28 11:18 | PN ---
Subjective Date of Service: 09/28/17 Interval History: Ms. Meade reports some back pain that is chronic for her. She denies other complaint and reports that she feels much better overall. Family History: Unchanged from Admission Social History: Unchanged from Admission Past Medical History: Unchanged from Admission Objective Active Medications: Acetaminophen (Tylenol Tab*) 650 mg PO Q6H PRN Acetaminophen (Tylenol Supp*) 650 mg ID Q4H PRN Aspirin (Aspirin 81 Mg Chew Tab*) 81 mg PO DAILY CARRI Bisacodyl (Dulcolax Supp*) 10 mg ID DAILY PRN Cholecalciferol (Vitamin D Tab*) 1,000 units PO DAILY CARRI Famotidine (Pepcid Tab*) 40 mg PO QPM CARRI Guaifenesin (Robitussin*) 5 ml PO Q4H PRN Heparin Sodium (Porcine) (Heparin Vial(*)) 5,000 units SUBCUT Q8HR CARRI Sodium Chloride (Ns 0.9% 1000 Ml*) 1,000 mls @ 75 mls/hr IV .PER RATE CARRI Ceftriaxone Sodium 1 gm/ (Sodium Chloride) 50 mls @ 200 mls/hr IVPB Q24H CARRI Azithromycin 250 mg/ Sodium (Chloride) 250 mls @ 250 mls/hr IVPB Q24H CARRI Magnesium Hydroxide (Milk Of Magnesia Liq*) 30 ml PO DAILY PRN Vital Signs: Temp Pulse Resp BP Pulse Ox 98.8 F 72 20 144/35 98 09/28/17 03:21 09/28/17 07:22 09/28/17 07:53 09/28/17 07:22 09/28/17 07:22 Oxygen Devices in Use Now: Nasal Cannula Appearance: Female lying in bed in NAD Eyes: No Scleral Icterus Ears/Nose/Mouth/Throat: Mucous Membranes Moist Neck: Trachea Midline Respiratory: Symmetrical Chest Expansion and Respiratory Effort, Clear to Auscultation Cardiovascular: NL Sounds; No Murmurs; No JVD, No Edema Skin: - - Diffuse erythematous rash, unchanged from yesterday Neurological: Alert and Oriented x 3, NL Muscle Strength and Tone Nutrition: Taking PO's Result Diagrams: 09/27/17 09:27 09/28/17 06:04 Additional Lab and Data: . Microbiology and Other Data: . Assess/Plan/Problems-Billing Assessment: Ms. Meade is an 82yo female with dementia, schizophrenia, COPD, CKD, Cardiomyopathy, anemia who presents after being unresponsive with a possible pulseless episode for which CPR was started and then aborted after a pulse was found, now with pneumonia due to strep pneumonia and EKG changes with T wave inversions in the anterior leads. - Patient Problems (1) Acute respiratory failure with hypoxia Comment: - Resolving, now on 2L NC - Secondary to pneumonia with treatment as per below (2) Pneumonia Comment: - Improving. - Blood cultures negative. Chest xray shows infiltrate. Urine positive for S. pneumo antigen. - Appreciate ID consult, continue ceftriaxone and azithromycin. (3) Severe sepsis Comment: - Resolved. Met SIRS criteria with Leukocytosis, Fever, Tachycardia. Pulmonary Source. SOFA score 0 on presentation (4) Altered mental status Comment: - Improved, Around baseline per son. - Suspect this is related to infection. CT head negative. No focal deficits. (5) Elevated troponin Comment: - Chest pain reproducible with palpation with elevated troponin peaked at .23. Possibly demand ischemia or trauma from Chest Compressions. - Appreciate cardiology input. not good candidate for Cardiac Cath right now. Will discuss stress test at later date with family. Continue aspirin. (6) Electrolyte abnormality Comment: - Continue potassium and magnesium supplementation. (7) Schizophrenia Comment: Continue supportive care. Negative symptoms could be contributing to AMS. Previously maintained on Haloperidol. Discontinued possibly due to QT interval or EPS. Will not resume at this time. (8) Anemia Comment: At baseline. (9) Cardiomyopathy Comment: Normal EF on Echo with no focal wall motion abnormalities. (10) Chronic kidney disease Comment: At baseline. (11) DVT prophylaxis Comment: - Continue SQ Heparin. (12) Full code status Comment: Status and Disposition: Inpatient. OK for discharge to [facility]. Remove ortega, if able to void will discharge.
[2017-09-28] MEDS: Azithromycin IV(*) 250 MG in NS 0.9% 250 ML* 250 ML IVPB SCH (12:14)
[2017-09-28] MEDS: cefTRIAXone(*) 1 GM in NS 0.9% 50 ML* 50 ML IVPB SCH (12:14)
--- NOTE | 2017-09-28 13:13 | DS ---
CC: [facility] * DATE OF ADMISSION: 09/23/2017. DATE OF DISCHARGE: 09/28/2017. ATTENDING PHYSICIAN: Dr. Akila Jj * (dictation provided by Mela Boogie NP ). PRIMARY DIAGNOSES: 1. Acute respiratory failure with hypoxia. 2. Severe sepsis. 3. Pneumonia. 4. Altered mental status. 5. Suspected cardiac contusion, status post CPR performed outpatient prior to arrival in the setting of suspected loss of pulse. No clear evidence of cardiac arrest. SECONDARY DIAGNOSES: 1. Schizophrenia. 2. Cardiomyopathy. 3. Chronic kidney disease. 4. Anemia. MEDICATIONS AT THE TIME OF DISCHARGE: 1. Fleets enema one per rectum daily as needed for constipation. 2. Milk of Magnesia 30 ml orally as needed for constipation. 3. Dulcolax suppository 10 mg per day as needed for constipation. 4. Zantac 300 mg oral every evening. 5. Tylenol 650 mg oral q.6 hours as needed for fever or pain. 6. Vitamin D3 1,000 units oral daily. 7. Cefpodoxime 200 mg p.o. q.12 hours times three. 8. Azithromycin 250 mg p.o. daily times two. 9. Guaifenesin 5 ml p.o. q.4 hours prn. HOSPITAL COURSE: Ms. Meade is an 82-year-old female with a past medical history of schizophrenia who presents to the hospital on 09/23/2017 after being found unresponsive at [facility]. Per the report, the patient was found unresponsive, hypoxic and an O2 saturation of 80 percent. The patient had been complaining of cough with increased phlegm. Per the report from the facility, at one point they were unable to find a pulse and she went unresponsive. CPR was started. When CPR arrived and placed her on the monitor, she was in a sinus tachycardia and CPR was discontinued. The patient, however, remained hypoxic requiring 8 liters nasal cannula and was transferred to the ED for evaluation. In the emergency room she had leukocytosis and a white blood cell count of 16.2. She had a x-ray with a patchy density overlying the lungs diffusely. Her EKG showed new diffuse T-wave inversions. She had an ESR of 54, lactic acid of 5.9, troponin of 0.03, CRP of 8.42. The remainder of her work-up included a CT head which was negative. Ms. Meade was admitted to the hospital. She was treated with Zosyn for pneumonia. She had this abnormal EKG with a diffuse T-wave inversion which is suspected to be due to the chest compressions at [facility]. Her troponin peaked at 0.23. She was seen in consultation by Dr. Hagen from Cardiology who agreed that this was likely related to the confusion and injury during CPR. He did not recommend cardiac catheterization during this hospitalization, but this could be considered in conjunction with a conversation with the patient's caregivers and family members. She did have a transthoracic echocardiogram which showed a normal ejection fraction of 50 to 55 percent, moderate aortic regurgitation, and no other significant abnormalities. The patient did have some low urine output early in the hospitalization which has resolved. She did have a renal and bladder ultrasound for that reason which showed mild bilateral renal cortical atrophy, no conspicuous renal stones , bilateral ureteral jets documented, post residual volume estimated at 65 ml. No focal bladder lesions evident. Her creatinine on arrival was 1.04 and her BUN was 24 and her kidney status has remained normal. Her urinalysis was suspicious for infection on arrival, but her urine culture was ultimately negative. The patient was also seen in consultation by Dr. Jose Hansen from Infectious Disease who agreed that the patient likely had just a community- acquired pneumonia and switched her from Zosyn to Ceftriaxone and Azithromycin. She had a repeat chest x-ray on 09/28/2017 which showed interstitial edema and right basilar atelectasis versus consolidation. Ms. Meade has been slowly weaned down on her oxygen. She currently is only requiring 2 liters nasal cannula. She is back to her baseline in terms of her mental status and she is alert and oriented. She does have a diffuse erythematous rash which per Dr. Hansen is likely related to Zosyn which has been discontinued. She is doing well generally. Her vital signs are stable. She is no longer febrile and is medically stable for discharge back to [facility]. DISPOSITION: To [facility]. DIET: Regular with pureed and pudding thick liquids. ACTIVITY: As tolerated. FOLLOW- UP PLANS: Please follow-up with the physicians at [facility] per routine to ensure resolution of improving pneumonia. Approximately 60 minutes were spent in the discharge of this patient, more than half that time spent with the patient at the bedside reviewing the events leading up to this hospitalization, performing the physical examination, and reviewing the plan of care. MELA BOOGIE, MONOTYPIST [id number]/[facility] #: [id number] [facility]ITALEd
[2017-09-28] MEDS: Acetaminophen TAB* 325 MG PO PRN ×2 (15:18→21:35)
--- NOTE | 2017-09-28 15:27 | PN ---
Progress Note - Progress Note Date of Service: 09/28/17 SOAP: Subjective: CC: pneumonia HPI: 82 year old woman with R lung pneumonia; fever resolved, rash is fading. No diarrhea overnight. O2 requirement tapering down. Objective: Gen:awake, no distress HEENT: no thrush Neuro: Ox2 Heart:RRR no murmur Lungs: Decr BS R lung pires Abd:+BS NTND soft Skin: diffuse erythema, blanching MSK: no joint synovitis Microbiology 09/23/17 11:25 Aerobic Blood Culture - Preliminary Blood Venous No Growth Day 3 Anaerobic Blood Culture - Preliminary No Growth Day 3 09/23/17 11:22 Aerobic Blood Culture - Preliminary Blood Venous No Growth Day 3 Anaerobic Blood Culture - Preliminary No Growth Day 3 Assessment: 1. fever, rash; suspect drug reaction 2. extensive R pneumonia 3. out of hospital arrest Plan: 1. has had 3 days cefetriaxone/azithro; will complete course with PO antibiotics. CXR 1 month. 25 minutes floor time >50% face to face coordinating follow up abx and cxr.
[2017-09-28] MEDS ORDERED: diPHENhydraMINE PO* 25 MG PO PRN (15:50)
[2017-09-28] MEDS ORDERED: Omeprazole CAP* 20 MG PO ONE (15:55)
[2017-09-28] MEDS ORDERED: Azithromycin TAB* 250 MG PO SCH (16:00)
[2017-09-28] MEDS: Azithromycin 100 MG/5 ML SUSP* 100 MG/5 ML BTL PO SCH (16:29)
[2017-09-28] MEDS: Famotidine TAB* 20 MG PO SCH (17:56)
[2017-09-28] MEDS: CMCS Cefdinir cap (NF) 300 MG CAP PO SCH (21:34)
[2017-09-29] MEDS: Heparin VIAL(*) 5000 UNITS/ML VIAL (FIVE THOUSAND) SUBCUT SCH ×2 (05:27→14:01)
[2017-09-29] MEDS: Cholecalciferol TAB* 1000 UNITS PO SCH (09:30)
[2017-09-29] MEDS: Aspirin 81 mg CHEW TAB* 81 MG TAB.CHEW PO SCH (09:30)
[2017-09-29] MEDS: CMCS Cefdinir cap (NF) 300 MG CAP PO SCH (09:30)
[2017-09-29] MEDS: Azithromycin 100 MG/5 ML SUSP* 100 MG/5 ML BTL PO SCH (09:30)
--- NOTE | 2017-09-29 10:42 | PN ---
Subjective Date of Service: 09/29/17 Interval History: Patient was going to be discharged yesterday but had a difficult time voiding after ortega was removed, as well as had a noted rash on chest wall and arms, as well as a low grade temp. Patient is awake on exam. She is nonverbal but does answer yes and no questions. She shows me her rash on her arms and chest, she denies that is hurts or itches, she reports it looks better. She has voided several times since ortega has been removed. No fever this am. Family History: Unchanged from Admission Social History: Unchanged from Admission Past Medical History: Unchanged from Admission Objective Active Medications: Acetaminophen (Tylenol Tab*) 650 mg PO Q6H PRN PRN Reason: PAIN Last Admin: 09/28/17 21:35 Dose: 650 mg Acetaminophen (Tylenol Supp*) 650 mg [place] Q4H PRN PRN Reason: FEVER/PAIN Last Admin: 09/26/17 05:32 Dose: 650 mg Aspirin (Aspirin 81 Mg Chew Tab*) 81 mg PO DAILY [facility] Last Admin: 09/29/17 09:30 Dose: 81 mg Azithromycin (Zithromax 100 Mg/5 Ml Susp*) 250 mg PO DAILY [facility] Last Admin: 09/29/17 09:30 Dose: 250 mg Bisacodyl (Dulcolax Supp*) 10 mg [place] DAILY PRN PRN Reason: CONSTIPATION Cefdinir (Cefdinir Cap (Nf)) 300 mg PO BID [facility] Last Admin: 09/29/17 09:30 Dose: 300 mg Cholecalciferol (Vitamin D Tab*) 1,000 units PO DAILY [facility] Last Admin: 09/29/17 09:30 Dose: 1,000 units Diphenhydramine HCl (Benadryl Po*) 25 mg PO Q6H PRN PRN Reason: RASH Last Admin: 09/28/17 16:26 Dose: 25 mg Famotidine (Pepcid Tab*) 40 mg PO QPM [facility] PRN Reason: Protocol Last Admin: 09/28/17 17:56 Dose: 40 mg Guaifenesin (Robitussin*) 5 ml PO Q4H PRN PRN Reason: COUGH Heparin Sodium (Porcine) (Heparin Vial(*)) 5,000 units SUBCUT Q8HR [facility] Last Admin: 09/29/17 05:27 Dose: 5,000 units Sodium Chloride (Ns 0.9% 1000 Ml*) 1,000 mls @ 75 mls/hr IV .PER RATE CARRI Last Admin: 09/27/17 11:00 Dose: 75 mls/hr Magnesium Hydroxide (Milk Of Radha Monroy*) 30 ml PO DAILY PRN PRN Reason: CONSTIPATION Vital Signs - 8 hr 09/29/17 09/29/17 03:28 08:38 Temperature 99.4 F 98.1 F Pulse Rate 77 81 Respiratory 20 20 Rate Blood Pressure 145/39 152/45 (mmHg) O2 Sat by Pulse 97 97 Oximetry Oxygen Devices in Use Now: Nasal Cannula Appearance: elderly female chronically ill alert and awake in NAD Eyes: No Scleral Icterus, PERRLA Ears/Nose/Mouth/Throat: Mucous Membranes Moist, - - poor dentition Neck: NL Appearance and Movements; NL JVP Respiratory: Symmetrical Chest Expansion and Respiratory Effort, Clear to Auscultation Cardiovascular: NL Sounds; No Murmurs; No JVD, RRR, No Edema Abdominal: NL Sounds; No Tenderness; No Distention Skin: - - diffuse erythema (faded) on arms b/l and chest wall - no erythema noted on back, trunck, legs Neurological: NL Sensation, NL Muscle Strength and Tone, - - alert. BRENNER Lines/Tubes/Other Access: Clean, Dry and Intact Peripheral IV Nutrition: Taking PO's Result Diagrams: 09/29/17 09:55 09/29/17 09:55 Microbiology and Other Data: Microbiology 09/24/17 21:20 Nasal Screen MRSA (PCR)(ANATOLY) - Final Nasal Mrsa Not Detected 09/23/17 15:40 Legionella Urinary Antigen - Final Urine Negative Legionella Antigen Streptococcus pneumoniae Ag Screen - Final Positive S. Pneumo Antigen Assess/Plan/Problems-Billing Assessment: Ms. Meade is an 82yo female with dementia, schizophrenia, COPD, CKD, Cardiomyopathy, anemia who presents after being unresponsive with a possible pulseless episode for which CPR was started and then aborted after a pulse was found, now with pneumonia due to strep pneumonia and EKG changes with T wave inversions in the anterior leads. - Patient Problems (1) Rash Comment: - improving. suspect secondary to zoysn. (2) Acute respiratory failure with hypoxia Comment: - Resolved, now on 2L NC - Secondary to pneumonia with treatment as per below - CRP checked this am noted to be elevated 150 which is elevated from admission of a CRP of 8 - however she just was treated for a PNA and it has not been checked since admssion. There are no obvious signs of infection today. Plan to continue abx on doscharged and recheck labs on sun. (3) Severe sepsis Comment: - Resolved. Met SIRS criteria with Leukocytosis, Fever, Tachycardia. Pulmonary Source. SOFA score 0 on presentation (4) Altered mental status Comment: - Improved, Around baseline per son. - Suspect this is related to infection. CT head negative. No focal deficits. (5) Electrolyte abnormality Comment: - Continue potassium and magnesium supplementation. (6) Elevated troponin Comment: - Chest pain reproducible with palpation with elevated troponin peaked at .23. Possibly demand ischemia or trauma from Chest Compressions. - Appreciate cardiology input. not good candidate for Cardiac Cath right now. Continue aspirin. (7) Schizophrenia Comment: Continue supportive care. Negative symptoms could be contributing to AMS. Previously maintained on Haloperidol. Discontinued possibly due to QT interval or EPS. Will not resume at this time. (8) Anemia Comment: At baseline. (9) Cardiomyopathy Comment: Normal EF on Echo with no focal wall motion abnormalities. (10) Chronic kidney disease Comment: At baseline. (11) DVT prophylaxis Comment: - Continue SQ Heparin. (12) Full code status Comment:
[2017-09-29 10:49] LABS: ABS Basophils 0.1 10^3/ul (0-0.2); ABS Eosinophils 0.7 10^3/ul (0-0.6); ABS Lymphocytes 2.1 10^3/ul (1.0-4.8); ABS Monocytes 0.6 10^3/ul (0-0.8); ABS Nucleated RBC 0 10^3/ul; Eosinophil % 4.6 % (0-6); Hematocrit 32 % (35-47); Hemoglobin 10.3 g/dl (12.0-16.0); Lymphocyte % 13.9 % (25-47); Mean Corpuscular HGB Conc 33 g/dl (31-36); Mean Corpuscular Hemoglobin 28 pg (27-31); Mean Corpuscular Volume 87 fL (80-97); Mean Platelet Volume 9.9 um3 (7.4-10.4); Nucleated Red Blood Cells % 0; Platelet Count 236 10^3/ul (150-450); Red Blood Count 3.64 10^6/ul (4.00-5.40); Red Cell Distribution Width 16 % (10.5-15); White Blood Count 15.5 10^3/ul (3.5-10.8)
[2017-09-29 11:03] LABS: EGFR Non-African American 88.8 (>60)
[2017-09-29 12:02] VITALS: BP 128/37
[2017-09-30] MEDS ORDERED: Potassium Chloride LIQUID* 20 MEQ PACKET PO ONE (11:30)
== END 2017-09-29 13:50 | DRG 871 ==
LOC: ED 11:07 → MEDTELE 13:57 → ICU 09-24 20:56 → MEDTELE 09-27 15:14
PROVIDERS: ADMIT Internal Medicine; ATTEND Internal Medicine
PROC: 5A09457 Assistance with Respiratory Ventilation, 24-96 Consecutive Hours, Continuous Positive Airway Pressure (ICD-10-PCS; principal; 2017-09-24)
DX: A41.9 Sepsis, unspecified organism (principal); J96.01 Acute respiratory failure with hypoxia; J13 Pneumonia due to Streptococcus pneumoniae; S26.91XA Contusion of heart, unspecified with or without hemopericardium, initial encounter; I42.9 Cardiomyopathy, unspecified; E87.2 Acidosis; J44.9 Chronic obstructive pulmonary disease, unspecified; R65.20 Severe sepsis without septic shock; F20.9 Schizophrenia, unspecified; N18.3 Chronic kidney disease, stage 3 (moderate); D64.9 Anemia, unspecified; R74.8 Abnormal levels of other serum enzymes; X58.XXXA Exposure to other specified factors, initial encounter; Y92.9 Unspecified place or not applicable; Z79.1 Long term (current) use of non-steroidal anti-inflammatories (NSAID); Z79.899 Other long term (current) drug therapy; Z83.3 Family history of diabetes mellitus; Z87.891 Personal history of nicotine dependence; L27.1 Localized skin eruption due to drugs and medicaments taken internally; T36.0X5A Adverse effect of penicillins, initial encounter; Y92.230 Patient room in hospital as the place of occurrence of the external cause; F03.90 Unspecified dementia, unspecified severity, without behavioral disturbance, psychotic disturbance, mood disturbance, and anxiety
CPT/HCPCS: 36415; 70450; 71045; 76770; 80048; 80053; 80061; 81003; 81015; 82550; 82803; 83036; 83605; 83735; 83880; 84145; 84484; 85025; 85384; 85610; 85652; 85730; 86140; 87040; 87086; 87641; 87899; 93005; 93306; 99285; A9270-GY; J0456; J0696; J1644; J1940; J2543; J3475; J3480

== ENCOUNTER 2017-10-15 22:07 | Emergency (ER) | payer MEDICARE, MEDICAID ==
--- NOTE | 2017-10-15 23:04 | ED ---
Shortness of Breath - HPI Summary HPI Summary: Patient to the ED from [facility] for shortness of breath. Patient cannot provide history but nods yes to sob, but shakes her head to each question when asked about CP, fever, cough, sore throat, abdominal pain, N/V/D, change in urinary BM. No history sent from facility, amnd has not responded to repeated calls to facility. EMS told nursing staff the patient is normally on room air , was placed on 3 L by EMS. HilariooNeb prior to arrival. - History of Current Complaint Chief Complaint: EDShortnessOfBreath Time Seen by Provider: 10/15/17 22:26 Hx Obtained From: EMS - Allergy/Home Medications Allergies/Adverse Reactions: Allergies Allergy/AdvReac Type Severity Reaction Status Date / Time amlodipine [From Norvasc] Allergy Unknown Verified 10/15/17 22:14 Reaction Details carvedilol [From Coreg] Allergy Unknown Verified 10/15/17 22:14 Reaction Details codeine Allergy Unknown Verified 10/15/17 22:14 Reaction Details diltiazem Allergy Unknown Verified 10/15/17 22:14 Reaction Details nicotine [From Nicoderm CQ] Allergy Unknown Verified 10/15/17 22:14 Reaction Details Home Medications: Home Medications Bisacodyl SUPP* [Dulcolax Supp*] 10 mg WI DAILY PRN 10/15/17 [History Confirmed 10/15/17] Cholecalciferol TAB* [Vitamin D TAB*] 1,000 unit PO DAILY 10/15/17 [History Confirmed 10/15/17] Magnesium Hydroxide LIQ* [Milk of Magnesia LIQ*] 15 ml PO DAILY PRN 10/15/17 [ History Confirmed 10/15/17] Ranitidine TAB (NF) [Zantac TAB (NF)] 300 mg PO BID 10/15/17 [History Confirmed 10/15/17] PMH/Surg Hx/FS Hx/Imm Hx Endocrine/Hematology History: Reports: Hx Thyroid Disease - hx hypothyroidism, Hx Anemia Cardiovascular History: Reports: Hx Coronary Artery Disease, Other Cardiovascular Problems/Disorders - Cariomyopathy Respiratory History: Reports: Hx Chronic Obstructive Pulmonary Disease (COPD), Other Respiratory Problems/Disorders - LUNG CANCER RIGHT History: Reports: Hx Chronic Renal Failure Musculoskeletal History: Reports: Other Musculoskeletal History - weakness Sensory History: Denies: Hx Contacts or Glasses, Hx Hearing Aid Opthamlomology History: Denies: Hx Contacts or Glasses Psychiatric History: Reports: Hx Schizophrenia Infectious Disease History: No Infectious Disease History: Denies: Traveled Outside the [place] in Last 30 Days - Family History Known Family History: Positive: Unknown - Unable to obtain due to AMS - Social History Alcohol Use: None Substance Use Type: Reports: None Smoking Status (MU): Unknown if Ever Smoked Review of Systems Constitutional: Negative Eyes: Negative ENT: Negative Cardiovascular: Negative Positive: Shortness Of Breath Gastrointestinal: Negative Genitourinary: Negative Musculoskeletal: Negative Skin: Negative Neurological: Negative Psychological: Normal All Other Systems Reviewed And Are Negative: Yes Physical Exam Triage Information Reviewed: Yes Vital Signs On Initial Exam: Initial Vitals Pulse Resp BP Pulse Ox 106 35 178/70 98 10/15/17 22:10 10/15/17 22:10 10/15/17 22:10 10/15/17 22:10 Vital Signs Reviewed: Yes Appearance: Positive: Thin Skin: Positive: Warm Head/Face: Positive: Normal Head/Face Inspection Eyes: Positive: Normal Neck: Positive: Supple Respiratory/Lung Sounds: Positive: Clear to Auscultation Cardiovascular: Positive: Normal Abdomen Description: Positive: Nontender Musculoskeletal: Positive: Normal Neurological: Positive: Normal Psychiatric: Positive: Normal AVPU Assessment: Alert - Vaughn Coma Scale Best Eye Response: 4 - Spontaneous Best Motor Response: 6 - Obeys Commands Diagnostics - Vital Signs Vital Signs Temp Pulse Resp BP Pulse Ox 10/15/17 22:40 93 36 131/59 97 10/15/17 22:16 100 30 97 10/15/17 22:15 97.9 F 101 26 178/70 99 10/15/17 22:10 106 35 178/70 98 - Laboratory Result Diagrams: 10/15/17 22:49 10/15/17 22:49 Lab Statement: Any lab studies that have been ordered have been reviewed, and results considered in the medical decision making process. - Radiology cxr Xray Interpretation: No Acute Changes Radiology Interpretation Completed By: ED Physician - EKG 1 Cardiac Rate: NL EKG Rhythm: Sinus Rhythm ST Segment: Non-Specific Ectopy: None EKG Comparison: No Significant Change Course/Dx - Course Course Of Treatment: Patient to the ED from [facility] for shortness of breath. Patient cannot provide history but nods yes to sob, but shakes her head to each question when asked about CP, fever, cough, sore throat, abdominal pain, N/V/D, change in urinary BM. No history sent from facility, amnd has not responded to repeated calls to facility. EMS told nursing staff the patient is normally on room air, was placed on 3 L by EMS. DuoNeb prior to arrival. Vs broderline nml for COPD. Labs and imaging borderline nml. IV access was unobtainable tonight in order to do CTA chest to rule out PE. Discussed patient with hospitalist Dr. Reeves who agreed to admit for observation with VQ scan tomorrow. - Diagnoses Provider Diagnoses: UTI (urinary tract infection) - Physician Notifications Discussed Care of Patient With: Edgar Reeves Instructed by Provider To: Admit As Observation Discharge - Sign-Out/Discharge Documenting (check all that apply): Discharge/Admit/Transfer - Discharge Plan Condition: Stable Disposition: ADMITTED TO [facility] Referrals: No Primary Care Phys,NOPCP [Primary Care Provider] - - Billing Disposition and Condition Condition: STABLE Disposition: Admitted to [facility]
[2017-10-15 23:11] LABS: ABS Basophils 0 10^3/ul (0-0.2); ABS Eosinophils 0.1 10^3/ul (0-0.6); ABS Lymphocytes 0.7 10^3/ul (1.0-4.8); ABS Monocytes 0.4 10^3/ul (0-0.8); ABS Neutrophils 4.2 10^3/ul (1.5-7.7); ABS Nucleated RBC 0 10^3/ul; Eosinophil % 1.5 % (0-6); Hematocrit 37 % (35-47); Hemoglobin 12.1 g/dl (12.0-16.0); INR 1.02 (0.77-1.02); Lymphocyte % 13.8 % (25-47); Mean Corpuscular HGB Conc 33 g/dl (31-36); Mean Corpuscular Hemoglobin 29 pg (27-31); Mean Corpuscular Volume 88 fL (80-97); Mean Platelet Volume 8.8 um3 (7.4-10.4); Nucleated Red Blood Cells % 0.1; Platelet Count 259 10^3/ul (150-450); Red Blood Count 4.16 10^6/ul (4.00-5.40); Red Cell Distribution Width 18 % (10.5-15); White Blood Count 5.4 10^3/ul (3.5-10.8)
[2017-10-15 23:18] LABS: EGFR Non-African American 50.2 (>60)
[2017-10-15] MEDS ORDERED: methylPREDNISolone 125 MG* 2 ML VIAL IV ONE (23:47)
[2017-10-15] MEDS ORDERED: Albuterol/Ipratropium NEB.SOL* Albuterol 2.5 MG/Ipratropium 0.5 MG 3 ML INH ONE (23:47)
[2017-10-16] MEDS ORDERED: Iodixanol* (CONTRAST) 320 MG/ML 100 ML SDV IV ONE (00:36)
[2017-10-16] MEDS ORDERED: NS 0.9% 500 ML* 500 ML IV SCH (01:00)
[2017-10-16 01:52] LABS: Urine Appearance Turbid; Urine Blood Negative (Negative); Urine Color Amber; Urine Ketones Negative (Negative); Urine Protein 2+(100 mg/dL) (Negative); Urine Specific Gravity 1.018 (1.010-1.030); Urine Urobilinogen Negative (Negative)
--- NOTE | 2017-10-16 05:08 | ED ---
Progress - Progress Note Progress Note: Time: 0 500 Patient was evaluated by hospitalist, Dr. Reeves. He stated that he was able to speak to half-way staff. They stated that patient did have an episode of difficulty breathing and when patient placed on oxygen patient did feel better. Patient supposed to be on oxygen all the time after she was discharged from the hospital . Patient has O2 saturation of 97% on 2 L nasal cannula. Patient's chest x-ray is negative for infiltrate. He does feel patient can be discharged to ID and follow-up with her primary care physician. Patient will be discharged home to follow-up with the half-way doctor. Course/Dx - Course Course Of Treatment: [facility] Patient cannot provide history but nods yes to sob, but shakes her head to each question when asked about CP, fever, cough, sore throat, abdominal pain, N/V/D, change in urinary BM. No history sent from facility, amnd has not responded to repeated calls to facility. EMS told nursing staff the patient is normally on room air, was placed on 3 L by EMS. Brainb prior to arrival. Vs broderline nml for COPD. Labs and imaging borderline nml. IV access was unobtainable tonight in order to do CTA chest to rule out PE. Discussed patient with hospitalist Dr. Reeves who agreed to admit for observation with VQ scan tomorrow. - Diagnoses Provider Diagnoses: UTI (urinary tract infection) - Provider Notifications Instructed by Provider To: Admit As Observation Discharge - Sign-Out/Discharge Documenting (check all that apply): Discharge/Admit/Transfer - Discharge Plan Condition: Stable Disposition: [facility] Referrals: No Primary Care Phys,NOPCP [Primary Care Provider] - - Billing Disposition and Condition Condition: STABLE Disposition: Long-Term Facility
[2017-10-16 06:37] VITALS: BP 142/52
--- NOTE | 2017-10-16 07:16 | RAD ---
INDICATION: Shortness of breath. COMPARISON: Comparison is made with a prior study from September 28, 2017. TECHNIQUE: A portable view of the chest was obtained. FINDINGS: Cardiac and mediastinal contours appear to be within normal limits. The lungs are slightly hyperinflated. There is mild prominence of the interstitial markings which appear unchanged. No focal infiltrate or pleural effusion is seen. IMPRESSION: NO EVIDENCE FOR ACUTE DISEASE.
--- NOTE | 2017-10-16 08:33 | CONS ---
CONSULTATION REPORT: DATE OF CONSULT: 10/16/17 REASON FOR CONSULTATION: Hypoxia. SOURCE OF INFORMATION: Information obtained from review of past medical record , interview with ER provider, and review of medical records from [facility]. RELIABILITY: Fair. HISTORY OF PRESENT ILLNESS: This is an 82-year-old female, recent hospital stay at [facility] from 09/23/17 to 09/28/17 after she was admitted with acute respiratory failure, hypoxia, and severe sepsis in the setting of pneumonia, after a suspected cardiac arrest at [facility], was discharged on 2 L oxygen and today per [facility] notes at [facility], had an episode where she complained of choking. Her O2 sat decreased from 94% to 84% for which she was started on 2 L oxygen and increased to 92%. Over some time, her O2 then decreased to 88%. Afterwards, she was increased to 4 L oxygen. EMS was activated after the initial drop in oxygen to 84% after the choking episode. EMS notes were reviewed and indicated the patient had desatted to 86% and then increased to 90% with an increase from 2 to 4 L. It is unclear how this correlates with the information mentioned above. In either case, in the emergency room, the patient was not noted to be tachypneic or in any distress; however, there was no access to information from [facility] and a full workup was undertaken. An ABG did indicate partial pressure of oxygen of 60 and the hospitalist service was consulted for admission or for evaluation. When seen by this author, she felt better. She has schizophrenia and dementia and can relay limited amount of information to this author. PAST MEDICAL HISTORY: 1. Anemia. 2. COPD. 3. CKD. 4. Cardiomyopathy. 5. Recent pneumonia with associated acute hypoxic respiratory failure and severe sepsis. MEDICATIONS: On discharge from this hospital in September: 1. Fleet Enema. 2. Milk of magnesia. 3. Dulcolax suppository. 4. Zantac. 5. Tylenol. 6. Vitamin D3. 7. Cefpodoxime. 8. Azithromycin. 9. Guaifenesin. 10. 2 L oxygen. ALLERGIES: No known drug allergies. FAMILY HISTORY: Unable to obtain. SOCIAL HISTORY: Former smoker. REVIEW OF SYSTEMS: Unable to obtain. PHYSICAL EXAMINATION: Vitals: When seen by this author 143/56, heart rate 75, respiratory rate is 18, she is 96% on room air, increases to 99% on 2 L. Oropharynx is clear. Has moist mucous membranes. Has poor dentition. Has non - elevated JVP. She has regular rate and rhythm. She has rales in the right base, otherwise clear. Symmetric airway expansion. Abdomen: Soft, nontender, nondistended. Extremities are warm, well perfused. She nods to yes and no to questions. Can follow simple commands, otherwise is averbal. No anxiety, agitation, or depression. DIAGNOSTIC STUDIES: Data reviewed. Chest x-ray interpretation: No active cardiopulmonary disease. EKG: Normal sinus rhythm, right axis, anterior Q waves with T wave inversions in V4 through V6, unchanged from prior. ASSESSMENT AND PLAN: This is an 82-year-old female, recent hospital stay with acute hypoxic respiratory failure in the setting of pneumonia, an episode of choking today with concomitant shortness of breath and hypoxia, now being evaluated in [facility]. Hypoxia, resolved without intervention. While the patient does have rales in the right base, chest x-ray does not indicate any recurrence or persistent pneumonia. On room air, she has 96% O2 saturation and has had no visible distress, breathing comfortably, falls back asleep after this author left the room. Her laboratory data does not indicate any elevated white blood cell count. No other evidence of infection. Her troponin is nominal at 0.01 with a slightly elevated BNP of 144 without evidence of decompensated heart failure. Heart rate is nontachycardic. She is no longer hypoxic and she is in no apparent pain making pulmonary embolism less likely. I think this was likely in the setting of choking event, which has now resolved. I believe transfer to [facility] was appropriate to evaluate for infectious or other etiologies, which have returned negative. At this point, I do not think she requires additional observation or hospitalization and I recommended her to return to [facility] without changes in her previous medication doses or frequencies. Thank you for this consultation. [id number]/[facility] #: [id number] CHARLENE
--- NOTE | 2017-10-20 08:10 | ED ---
Progress - Progress Note Progress Note: Time: 0 500 Patient was evaluated by hospitalist, Dr. Reeves. He stated that he was able to speak to longterm staff. They stated that patient did have an episode of difficulty breathing and when patient placed on oxygen patient did feel better. Patient supposed to be on oxygen all the time after she was discharged from the hospital . Patient has O2 saturation of 97% on 2 L nasal cannula. Patient's chest x-ray is negative for infiltrate. He does feel patient can be discharged to [place] and follow-up with her primary care physician. Patient will be discharged home to follow-up with the longterm doctor. UPDATE: Patient's final urine culture reveals 75-100,000 Apolonia albicans. Patient came in with shortness of breath and was discharged without treatment of her infection. Shared results with Radha at [facility] who reports she will contact the hospitalist service here for guidance on treatment. She is aware Dr. Lauren is ultrasonic seaming machine operator today. RYLEY GACRIA 8:10AM, 10/20/2017 Course/Dx - Course Course Of Treatment: Patient to the ED from [facility] for shortness of breath. Patient cannot provide history but nods yes to sob, but shakes her head to each question when asked about CP, fever, cough, sore throat, abdominal pain, N/V/D, change in urinary BM. No history sent from facility, amnd has not responded to repeated calls to facility. EMS told nursing staff the patient is normally on room air, was placed on 3 L by EMS. DuoNeb prior to arrival. Vs broderline nml for COPD. Labs and imaging borderline nml. IV access was unobtainable tonight in order to do CTA chest to rule out PE. Discussed patient with hospitalist Dr. Reeves who agreed to admit for observation with VQ scan tomorrow. - Diagnoses Provider Diagnoses: UTI (urinary tract infection) - Provider Notifications Instructed by Provider To: Admit As Observation Discharge - Sign-Out/Discharge Documenting (check all that apply): Post-Discharge Follow Up - Discharge Plan Condition: Stable Disposition: NURSING HOME FACILITY Patient Education Materials: Shortness of Breath (ED) Referrals: No Primary Care Phys,NOPCP [Primary Care Provider] - - Billing Disposition and Condition Condition: STABLE Disposition: Residential Facility
== END 2017-10-16 06:45 ==
LOC: ED 22:07
DX: N39.0 Urinary tract infection, site not specified (principal); R06.02 Shortness of breath; D64.9 Anemia, unspecified; J44.9 Chronic obstructive pulmonary disease, unspecified
CPT/HCPCS: 36415; 71045; 80053; 81003; 81015; 82803; 83605; 83880; 84484; 85025; 85610; 85730; 86140; 87040; 87086; 87106; 93005; 96374; 99282; A9270-GY; J2930

== ENCOUNTER 2017-11-29 10:39 | Emergency (ER) | payer MEDICARE, MEDICAID ==
[~2017-11-29 10:39] MED LIST: EPINEPHrine SYR 0.1 MG/ML* (1:10,000) SYRINGE ONE
[2017-11-29] MEDS ORDERED: Calcium CHLORIDE 10% SYRINGE* 1 GM/10 ML ONE (10:45)
[2017-11-29 10:54] VITALS: BP 0/0
--- NOTE | 2017-11-29 11:02 | ED ---
Cardiac Resuscitation - HPI Summary HPI Summary: This is scribe Krzysztof Ayala documenting for attending Vikas Love MD. LEVEL 5 CAVEAT: History unobtainable from patient due to extremis. History obtained from EMS. This patient is an 82 year old F BIBA to [facility] with a chief complaint of cardiac arrest since 10:10 today. Patient is without palpable pulses, asystole. She was last seen awake and talking in [facility] at 10:07. She had been receiving CPR for 30 minutes INSURANCE APPLICATION INVESTIGATOR. IO was established INSURANCE APPLICATION INVESTIGATOR, and she had received epi 3x and bicarb 1x INSURANCE APPLICATION INVESTIGATOR. The EMS had pulses back for about 1 minute before it went away. Per the EMS, the sinus rhythm for the minute was ugly and had a beat in front of it. Patient has had a cardiac arrest in the recent past. She recently had pneumonia that resulted in her being in the ICU. She does not have a DNR but has a DNI. I, Dr. Love, personally performed the services described in this documentation as scribed in my presence, and it is both accurate and complete. - History of Current Complaint Stated Complaint: CARDIAC ARREST Hx Obtained From: EMS Hx From Patient Unobtainable Due To: Other - Cardiac arrest Arrest Witnessed: No Down-time Before Basic Life Support Initiated: Down-time before BLS initiated: - 3 minutes Down-time Before Advanced Life Support Initiated: Down-time before ALS initiated : - 30 minutes - Additional Pertinent History Primary Care Physician: [id number] - Allergies/Home Medications Allergies/Adverse Reactions: Allergies Allergy/AdvReac Type Severity Reaction Status Date / Time amlodipine [From Norvasc] Allergy Unknown Verified 10/15/17 22:14 Reaction Details carvedilol [From Coreg] Allergy Unknown Verified 10/15/17 22:14 Reaction Details codeine Allergy Unknown Verified 10/15/17 22:14 Reaction Details diltiazem Allergy Unknown Verified 10/15/17 22:14 Reaction Details nicotine [From Nicoderm CQ] Allergy Unknown Verified 10/15/17 22:14 Reaction Details - Past Medical History Past Medical History: Unobtainable Due to Extremis - Family History Family History: Unobtainable Due to Extremis - Social History Social History: Unobtainable Due to Extremis - Review of Systems Review of Systems: Unobtainable Due to Extremis Physical Examination - Summary Physical Exam Summary: VITAL SIGNS: Reviewed. GENERAL: Patient is thin female with active CPR, unresponsive. Patient was not intubated by EMS. HEAD AND FACE: No signs of trauma. No ecchymosis, hematomas or skull depressions. EYES: Pupils not reactive MOUTH: Oral mucosa dry NECK: Supple LUNGS: Diminished breath sounds only with baging CVS: No cardiac activity ABDOMEN: Soft no bowel sounds. EXTREMITIES: No edema noted. NEURO: Unresponsive - Physical Examination Completion Of Physical Exam Limited Due To: Extremis Resuscitation: Unsuccessful Diagnostics - Vital Signs Vital Signs Temp Pulse Resp BP Pulse Ox 11/29/17 10:48 96.6 F 0 0 0/0 0 - Laboratory Lab Statement: Any lab studies that have been ordered have been reviewed, and results considered in the medical decision making process. Cardiac Resus. Course/Dx - Course Assessment/Plan: This patient is a 89 year old F who is from [facility]. It is reported by the EMS that the patient was found unresponsive this morning at approximately 09:50. CPR was started by staff members. 911 was called and they continued CPR. In her safia forms, the patient was DNI, but she allowed CPR. EMS obtained an IO access in the LLE and the patient was given 2 rounds of epinephrine and bicarbonate as wella s fluids. Then, the patient was brought to the ED and placed in room 14. The patient as pulseless in active CPR. The patient was given 1 round of epinephrine and 1 round of calcium chloride. The patient persisted to be asystolic and pulseless. With the help of an US, her cardiac activity was assessed. None was found. Seeing that the patient had received approximately 50 minutes of CPR, therefore the prognosis was poor. Dr. Finney from ICU at bedside also assessed the cardiac activity and there was none. The patient continued to be asystloic and pulseless. The physicians decided to terminate the CPR and pronounced her at 10:50. Dr. Love discussed the case with Estefany White, and she will take the patient to the [facility] and they will decide if they will do an autopsy or not. - Diagnoses Provider Diagnoses: Cardiac arrest - Critical Care Time Critical Care Time: 30-74 min - 50 minutes Discharge - Sign-Out/Discharge Documenting (check all that apply): Patient Departure - Discharge Plan Condition: Disposition: Referrals: No Primary Care Phys,NOPCP [Primary Care Provider] - - Billing Disposition and Condition Condition: Disposition:
== END 2017-11-29 10:50 | disposition expired ==
LOC: ED 10:39
DX: I46.9 Cardiac arrest, cause unspecified (principal)
CPT/HCPCS: 99285; J0171